=== PATIENT | female | born 1935 | race Caucasian/White ===

== ENCOUNTER 2017-03-15 20:27 | Inpatient (IN) | payer MEDICARE, OTHER ==
--- NOTE | 2017-03-15 20:57 | ER Document Report ---
ED General - General Stated Complaint: LEG SWELLING Time Seen by Provider: 03/15/17 20:51 Notes: 82 years old female with multiple medical problems including hypertension CHF diabetes, presents today with increased swelling over the entire left leg more than the right, with erythema and feverish feeling. And also weeping serosanguineous fluid a lot. Had some shortness of breath on minimal exertion. Denies any chest pain. Denies any other constitutional symptoms. TRAVEL OUTSIDE OF THE [place] 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 Denies: Hx Seizures GI Medical History: Reports: Hx Hepatitis - hep A?? 1952. Denies: Hx Hiatal Hernia, Hx Ulcer Musculoskeltal Medical History: Reports Hx Arthritis Psychiatric Medical History: Denies: Hx Depression Infectious Medical History: Reports: Hx Hepatitis - hep A?? 1952 Past Surgical History: Reports: Hx Cardiac Catheterization, Hx Cardiac Surgery - stent, Hx Hysterectomy, Hx Orthopedic Surgery - right and left hands, Hx Pacemaker, Hx Tonsillectomy. Denies: Hx Mastectomy, Hx Open Heart Surgery - Immunizations Hx Pneumococcal Vaccination: 04/01/10 Review of Systems - Review of Systems Notes: REVIEW OF SYSTEMS: CONSTITUTIONAL : General weakness, tiredness EENT: Denies eye, ear, throat, or mouth pain or symptoms. Denies nasal or sinus congestion or discharge. Denies throat, tongue, or mouth swelling or difficulty swallowing. CARDIOVASCULAR: Denies chest pain. Denies palpitations or racing or irregular heart beat. Denies ankle edema. RESPIRATORY: Shortness of breath on minimal exertion GASTROINTESTINAL: Denies abdominal pain or distention. Denies nausea, vomiting , or diarrhea. Denies blood in vomitus, stools, or per rectum. Denies black, tarry stools. Denies constipation. GENITOURINARY: Denies difficulty urinating, painful urination, burning, frequency, blood in urine, or discharge. FEMALE GENITOURINARY: Denies vaginal bleeding, heavy or abnormal periods, irregular periods. Denies vaginal discharge or odor. MUSCULOSKELETAL: Denies back or neck pain or stiffness. Denies joint pain or swelling. SKIN: Denies rash, lesions or sores. HEMATOLOGIC : Denies easy bruising or bleeding. LYMPHATIC: Denies swollen, enlarged glands. NEUROLOGICAL: Denies confusion or altered mental status. Denies passing out or loss of consciousness. Denies dizziness or lightheadedness. Denies headache. Denies weakness or paralysis or loss of use of either side. Denies problems with gait or speech. Denies sensory loss, numbness, or tingling. Denies seizures. PSYCHIATRIC: Denies anxiety or stress. Denies depression, suicidal ideation, or homicidal ideation. ALL OTHER SYSTEMS REVIEWED AND NEGATIVE. PHYSICAL EXAMINATION: GENERAL: Obese female, mills looking, seems to be in mild to moderate discomfort. HEAD: Atraumatic, normocephalic. EYES: Pupils equal round and reactive to light, extraocular movements intact, conjunctiva are normal. ENT: Nares patent, oropharynx clear without exudates. Moist mucous membranes. NECK: Normal range of motion, supple without lymphadenopathy LUNGS: Breath sounds clear to auscultation bilaterally and equal. No wheezes rales or rhonchi. HEART: Regular rate and rhythm without murmurs ABDOMEN: Soft, nontender, nondistended abdomen. No guarding, no rebound. No masses appreciated. Female : deferred Musculoskeletal: Both lower extremity shows swelling but the left one is double the size of the right, a large swelling noted all the way from the hip to the toes. Erythematous is warm to touch, seeping serosanguineous fluid. NEUROLOGICAL: Cranial nerves grossly intact. Normal speech, normal gait. Normal sensory, motor exams PSYCH: Normal mood, normal affect. SKIN: Warm, Dry, normal turgor, no rashes or lesions noted. Dictation was performed using [employer] voice recognition software Course - Re-evaluation Re-evalutation: 03/15/17 23:30 The case was discussed with Dr. Tirado and currently being admitted for cellulitis and sepsis - Laboratory Result Diagrams: 03/15/17 21:24 03/15/17 22:34 Laboratory results interpreted by me: 03/15/17 03/15/17 03/15/17 21:24 21:24 21:50 WBC 11.1 H RBC 5.35 H Hgb 16.5 H Hct 49.1 H RDW 15.8 H Plt Count 137 L Seg Neutrophils % 86.2 H Lymphocytes % 6.6 L Absolute Neutrophils 9.6 H PT Sodium Chloride BUN Creatinine Est GFR ( Amer) Est GFR (Non-Af Amer) Lactic Acid 2.8 H Total Bilirubin Direct Bilirubin NT-Pro-B Natriuret Pep Albumin Urine Protein 100 H Urine Urobilinogen 2.0 H 03/15/17 03/15/17 03/15/17 22:34 22:34 22:34 WBC RBC Hgb Hct RDW Plt Count Seg Neutrophils % Lymphocytes % Absolute Neutrophils PT 17.6 H Sodium 133.5 L Chloride 94 L BUN 55 H Creatinine 1.26 H Est GFR ( Amer) 49 L Est GFR (Non-Af Amer) 41 L Lactic Acid Total Bilirubin 3.1 H Direct Bilirubin 1.6 H NT-Pro-B Natriuret Pep 6970 H Albumin 3.3 L Urine Protein Urine Urobilinogen - Diagnostic Test Radiology results interpreted by me: 03/15/17 23:32 Chest x-ray reviewed, radiology report reviewed, no infiltration effusion or pneumothorax. - EKG Interpretation by Me Rate: Normal - Ventricular paced rhythm at the rate of 70 bpm left bundle branch block pattern. Discharge - Discharge Clinical Impression: Sepsis affecting skin, Hypoxia, Prerenal azotemia Cellulitis, leg Qualifiers: Laterality: left Qualified Code(s): L03.116 - Cellulitis of left lower limb Disposition: ADMITTED INPATIENT Admitting Provider: Tirado Unit Admitted: [facility]
--- NOTE | 2017-03-15 21:36 | RADIOLOGY REPORT (SQ) ---
EXAM DESCRIPTION: CHEST SINGLE VIEW COMPLETED DATE/TIME: 03/15/2017 9:19 pm REASON FOR STUDY: Shortness of breath COMPARISON: 07/09/2015 EXAM PARAMETERS: NUMBER OF VIEWS: One view. TECHNIQUE: Single frontal radiographic view of the chest acquired. RADIATION DOSE: NA LIMITATIONS: None. FINDINGS: LUNGS AND PLEURA: No acute opacities, masses or pneumothorax. No pleural effusion. MEDIASTINUM AND HILAR STRUCTURES: Stable. HEART AND VASCULAR STRUCTURES: Stable cardiomegaly. BONES: No acute findings. HARDWARE: Cardiac defibrillator. OTHER: No other significant finding. IMPRESSION: NO ACUTE RADIOGRAPHIC FINDING IN THE CHEST. TECHNICAL DOCUMENTATION: JOB ID: [id number] [place]-72 2010 [employer]- All Rights Reserved
[2017-03-15 21:48] LABS: ABSOLUTE LYMPHOCYTES (AUTO) 0.7 10^3/uL (0.5-4.7); ABSOLUTE MONOCYTES (AUTO) 0.8 10^3/uL (0.1-1.4); ABSOLUTE NEUT (AUTO) 9.6 10^3/uL (1.7-8.2); BASOPHILS % (AUTO) 0.2 % (0-2); EOSINOPHILS % (AUTO) 0.2 % (0-6); HEMATOCRIT 49.1 % (36.0-47.0); HEMOGLOBIN 16.5 g/dL (12.0-15.5); HGB HCT DIFFERENCE 0.4; LYMPHOCYTES % (AUTO) 6.6 % (13-45); MEAN CORPUSCULAR HEMOGLOBIN 30.8 pg (27.0-33.4); MEAN CORPUSCULAR HGB CONC 33.6 g/dL (32.0-36.0); MEAN CORPUSCULAR VOLUME 92 fl (80-97); MONOCYTES % (AUTO) 6.8 % (3-13); RED BLOOD COUNT 5.35 10^6/uL (3.72-5.28); RED CELL DISTRIBUTION WIDTH 15.8 % (11.5-14.0); SEGMENTED NEUTROPHILS % (AUTO) 86.2 % (42-78); WHITE BLOOD COUNT 11.1 10^3/uL (4.0-10.5)
[2017-03-15 21:49] LABS: VENOUS BLOOD HCO3 30.7 mmol/L (20-32); VENOUS BLOOD PCO2 52.7 mmHg (35-63); VENOUS BLOOD PH 7.38 (7.30-7.42)
[2017-03-15 22:33] LABS: APPEARANCE,URINE SLIGHTLY-CLOUDY; BILIRUBIN,URINE NEGATIVE (NEGATIVE); GLUCOSE, URINE NEGATIVE (NEGATIVE); KETONES,URINE NEGATIVE (NEGATIVE); LEUKOCYTE ESTERASE,URINE NEGATIVE (NEGATIVE); NITRITE,URINE NEGATIVE (NEGATIVE); PROTEIN,URINE 100 mg/dL (NEGATIVE); URINE SPECIFIC GRAVITY 1.023
[2017-03-15 23:01] LABS: PROTHROMBIN TIME 17.6 SEC (11.4-15.4)
[2017-03-15 23:10] LABS: ALANINE AMINOTRANSFERASE 24 U/L (9-52); ALBUMIN 3.3 g/dL (3.5-5.0); ALKALINE PHOSPHATASE 99 U/L (38-126); ANION GAP 11 (5-19); ASPARTATE AMINO TRANSFERASE 25 U/L (14-36); BILIRUBIN,DIRECT 1.6 mg/dL (0.0-0.4); BILIRUBIN,TOTAL 3.1 mg/dL (0.2-1.3); BLOOD UREA NITROGEN 55 mg/dL (7-20); CALCIUM 9.5 mg/dL (8.4-10.2); CARBON DIOXIDE 29 mmol/L (22-30); CHLORIDE 94 mmol/L (98-107); CREATININE RESULT 1.26 mg/dL (0.52-1.25); GLUCOSE 92 mg/dL (75-110); POTASSIUM 4.8 mmol/L (3.6-5.0); SODIUM 133.5 mmol/L (137-145)
[2017-03-15] MEDS ORDERED: VANCOMYCIN HCL INJ 1000 MG VIAL IV ONE (23:12)
[2017-03-15 23:20] LABS: CREATINE KINASE MB 1.59 ng/mL (<4.55)
[2017-03-15 23:30] LABS: TROPONIN I 0.06 ng/mL
[2017-03-15] MEDS ORDERED: IPRATROPIUM/ALBUTEROL 0.5-2.5 MG/3 ML AMPUL NEB PRN (23:31)
[2017-03-15] MEDS ORDERED: OXYCODONE-ACETAMINOPHEN 5-325 MG TABLET PO PRN (23:31)
[2017-03-15] MEDS ORDERED: APIXABAN 5 MG TABLET PO SCH (23:45)
[2017-03-15] MEDS ORDERED: LEVOFLOXACIN 750 MG/D5W RTU 750 MG/150 ML RTUPB IV SCH (23:45)
[2017-03-16] MEDS ORDERED: DEXTROSE 50%-WATER SYRINGE 25 GM/50 ML DOSE IV PRN (03:14)
[2017-03-16] MEDS ORDERED: DEXTROSE 40% GEL 15 GM TUBE X 2 PO PRN (03:14)
[2017-03-16] MEDS ORDERED: INSULIN LISPRO 100 UNIT/ML 3 ML VIAL SUBCUT PRN (03:14)
[2017-03-16] MEDS ORDERED: GLUCAGON,HUMAN RECOMB 1 MG INJ IM PRN (03:14)
[2017-03-16] MEDS ORDERED: DEXTROSE 40% GEL 15 GM TUBE PO PRN (03:14)
[2017-03-16] MEDS ORDERED: DEXTROSE 50%-WATER SYRINGE 12.5 GM/25 ML DOSE IV PRN (03:14)
[2017-03-16] MEDS: CLINDAMYCIN 600 MG/D5W RTU 600 MG/50 ML RTUPB IV SCH ×3 (05:16→22:03)
--- NOTE | 2017-03-16 05:41 | EKG REPORT ---
SEVERITY:- ABNORMAL ECG - VENTRICULAR-PACED RHYTHM : Confirmed by: Anastasiya Mac 16-Mar-2017 05:40:31
[2017-03-16 06:43] LABS: ABSOLUTE LYMPHOCYTES (AUTO) 0.7 10^3/uL (0.5-4.7); ABSOLUTE MONOCYTES (AUTO) 0.6 10^3/uL (0.1-1.4); ABSOLUTE NEUT (AUTO) 8.2 10^3/uL (1.7-8.2); BASOPHILS % (AUTO) 0.3 % (0-2); EOSINOPHILS % (AUTO) 0.3 % (0-6); HEMATOCRIT 43.1 % (36.0-47.0); HEMOGLOBIN 14.6 g/dL (12.0-15.5); HGB HCT DIFFERENCE 0.7; LYMPHOCYTES % (AUTO) 7.2 % (13-45); MEAN CORPUSCULAR HEMOGLOBIN 30.9 pg (27.0-33.4); MEAN CORPUSCULAR HGB CONC 33.9 g/dL (32.0-36.0); MEAN CORPUSCULAR VOLUME 91 fl (80-97); MONOCYTES % (AUTO) 6.2 % (3-13); RED BLOOD COUNT 4.73 10^6/uL (3.72-5.28); RED CELL DISTRIBUTION WIDTH 15.3 % (11.5-14.0); WHITE BLOOD COUNT 9.6 10^3/uL (4.0-10.5)
[2017-03-16 06:53] LABS: ANION GAP 8 (5-19); BLOOD UREA NITROGEN 55 mg/dL (7-20); CALCIUM 8.9 mg/dL (8.4-10.2); CARBON DIOXIDE 27 mmol/L (22-30); CHLORIDE 96 mmol/L (98-107); CREATINE KINASE 22 U/L (30-135); CREATININE RESULT 1.15 mg/dL (0.52-1.25); GLUCOSE 114 mg/dL (75-110); SODIUM 130.9 mmol/L (137-145)
[2017-03-16 07:16] LABS: CREATINE KINASE MB 1.05 ng/mL (<4.55); TROPONIN I 0.065 ng/mL
[2017-03-16] MEDS ORDERED: (PENDING PHARMACY ID) (Potassium Chloride [K-Tab Er] 20 MEQ) PO SCH (08:00)
[2017-03-16] MEDS: POTASSIUM CHLORIDE 10 MEQ TABLET.SA PO SCH (08:53)
[2017-03-16] MEDS ORDERED: PROPYLTHIOURACIL 50 MG TABLET PO ONE (09:00)
--- NOTE | 2017-03-16 09:17 | PDOC H&P ---
History of Present Illness Admission Date/PCP: 03/15/17 23:48 LISETTE PEDERSEN MD Patient complains of: Left lower extremity swelling and shortness of the breath History of Present Illness: MAXX BEE is a 82 year old female This is a 82-year-old female with a significant history of the congestive heart failure and a history of the chronic venous insufficiency and a history of the atrial fibrillations and pacemaker placement came to the emergency department with a complaint of left lower extremity swelling and redness and increasing the more pain since last 1 week Patient's denied any chest pain but complains of some mild shortness of the breath Patients also see a cardiology at [facility] and recently seen in March was all stable Patients also see a wound care clinic for chronic venous insufficiency In the emergency departments patient's white count is elevated and the definitely patient have a left lower extremity cellulitis with some mild CHF and decided to admit in the hospital The patient on the floor patients feeling better denied any chest pain denied any shortness of the breath Patient's pain is under control Past Medical History Cardiac Medical History: Reports: Atrial Fibrillation, Congestive Heart Failure , Coronary Artery Disease, Myocardial Infarction - 1998 two days after stroke, Hyperlipidema, Hypertension - medicated Pulmonary Medical History: Denies: Asthma Neurological Medical History: Denies: Seizures Renal/ Medical History: Reports: Chronic Kidney Disease GI Medical History: Reports: Gastroesophageal Reflux Disease, Hepatitis - hep A? ? 1952 Denies: Hiatal Hernia Musculoskeltal Medical History: Reports: Arthritis Psychiatric Medical History: Denies: Depression Hematology: Reports: Anemia - medicated Denies: Sickle Cell Disease Past Surgical History Past Surgical History: Reports: Cardiac Catheterization, Hysterectomy, Orthopedic Surgery - right and left hands, Pacemaker, Tonsillectomy Denies: Amputation, Mastectomy Social History Smoking Status: Never Smoker Frequency of Alcohol Use: None Hx Recreational Drug Use: No Drugs: None Hx Prescription Drug Abuse: No - Advance Directive Resuscitation Status: Full Code Family History Family History: Reviewed & Not Pertinent Parental Family History Reviewed: Yes Children Family History Reviewed: Yes Sibling(s) Family History Reviewed.: Yes Medication/Allergy Home Medications: Digoxin [Lanoxin 0.125 mg Tablet] 125 mcg PO DAILY 05/10/15 Ferrous Sulfate [Feosol 325 mg Tablet] 325 mg PO DAILY 05/10/15 Meclizine HCl 12.5 mg PO BID PRN 05/10/15 Propylthiouracil [Propylthiouracil 50 mg Tablet] 12.5 mg PO QAM 05/10/15 Simvastatin [Zocor 20 mg Tablet] 20 mg PO QHS 05/10/15 Apixaban [Eliquis 5 mg Tablet] 5 mg PO .BID 06/13/15 Ergocalciferol (Vitamin D2) [Drisdol 50,000 Unit (1.25MG) Capsule] 1 cap PO [id number] 03/16/17 Metolazone 2.5 mg PO TID 03/16/17 Metoprolol Tartrate 50 mg PO BID 03/16/17 Allergies/Adverse Reactions: Penicillins Allergy (Intermediate, Verified 05/10/15 12:54) Hives Review of Systems Constitutional: PRESENT: fever(s). ABSENT: chills, headache(s), weight gain, weight loss Eyes: ABSENT: visual disturbances Ears: ABSENT: hearing changes Cardiovascular: PRESENT: dyspnea on exertion. ABSENT: chest pain, edema, orthropnea, palpitations Respiratory: ABSENT: cough, hemoptysis Gastrointestinal: ABSENT: abdominal pain, constipation, diarrhea, hematemesis, hematochezia, nausea, vomiting Genitourinary: ABSENT: dysuria, hematuria Musculoskeletal: ABSENT: joint swelling Integumentary: ABSENT: rash, wounds Neurological: ABSENT: abnormal gait, abnormal speech, confusion, dizziness, focal weakness, syncope Psychiatric: ABSENT: anxiety, depression, homidical ideation, suicidal ideation Endocrine: ABSENT: cold intolerance, heat intolerance, menstrual abnormalities, polydipsia, polyuria Hematologic/Lymphatic: ABSENT: easy bleeding, easy bruising, lymphadenopathy Physical Exam Vital Signs: Temp Pulse Resp BP Pulse Ox 98.2 F 70 20 122/56 L 93 03/16/17 07:44 03/16/17 07:44 03/16/17 07:44 03/16/17 07:44 03/16/17 07:44 Intake & Output 03/15/17 03/16/17 03/17/17 06:59 06:59 06:59 Intake Total 170 Output Total 0 Balance 170 Weight 107 kg General appearance: PRESENT: no acute distress, well-developed, well-nourished Head exam: PRESENT: atraumatic, normocephalic Eye exam: PRESENT: conjunctiva pink, EOMI, PERRLA. ABSENT: scleral icterus Ear exam: PRESENT: normal external ear exam Mouth exam: PRESENT: moist, tongue midline Neck exam: PRESENT: full ROM. ABSENT: carotid bruit, JVD, lymphadenopathy, thyromegaly Respiratory exam: PRESENT: clear to auscultation reg Cardiovascular exam: PRESENT: RRR. ABSENT: diastolic murmur, rubs, systolic murmur Pulses: PRESENT: normal dorsalis pedis pul, +2 pedal pulses bilateral Vascular exam: PRESENT: normal capillary refill GI/Abdominal exam: PRESENT: normal bowel sounds, soft. ABSENT: distended, guarding, mass, organolmegaly, rebound, tenderness Rectal exam: PRESENT: deferred Extremities exam: PRESENT: pedal edema Additional comments: In the left lower extremities redness and warm to touch in the right lower extremities chronic venous insufficiency Neurological exam: PRESENT: alert, awake, oriented to person, oriented to place , oriented to time, oriented to situation, CN II-XII grossly intact. ABSENT: motor sensory deficit Psychiatric exam: PRESENT: appropriate affect, normal mood. ABSENT: homicidal ideation, suicidal ideation Skin exam: PRESENT: dry, intact, warm. ABSENT: cyanosis, rash Results Laboratory Results: 03/16/17 06:30 03/16/17 06:30 03/16/17 03/16/17 03/16/17 01:46 06:30 06:30 WBC 9.6 RBC 4.73 Hgb 14.6 Hct 43.1 MCV 91 MCH 30.9 MCHC 33.9 RDW 15.3 H Plt Count 94 L Seg Neutrophils % 86.0 H Lymphocytes % 7.2 L Monocytes % 6.2 Eosinophils % 0.3 Basophils % 0.3 Absolute Neutrophils 8.2 Absolute Lymphocytes 0.7 Absolute Monocytes 0.6 Absolute Eosinophils 0.0 Absolute Basophils 0.0 Sodium 130.9 L Potassium 5.0 Chloride 96 L Carbon Dioxide 27 Anion Gap 8 BUN 55 H Creatinine 1.15 Est GFR ( Amer) 55 L Est GFR (Non-Af Amer) 45 L Glucose 114 H Lactic Acid 1.8 Calcium 8.9 Magnesium 2.0 03/16/17 03/16/17 06:30 06:30 Creatine Kinase 22 L CK-MB (CK-2) 1.05 Troponin I 0.065 NT-Pro-B Natriuret Pep 6680 H Impressions: Chest X-Ray 03/15/17 20:51 IMPRESSION: NO ACUTE RADIOGRAPHIC FINDING IN THE CHEST. Assessment & Plan - Diagnosis (1) Cellulitis, leg Qualifiers: Laterality: left Qualified Code(s): L03.116 - Cellulitis of left lower limb Is this a current diagnosis for this admission?: Yes Plan: Start the patient on IV clindamycin's patient's already received the 1 dose of the vancomycin in the ER consult the general surgery (2) Chronic atrial fibrillation Is this a current diagnosis for this admission?: Yes Plan: Ruiz the Eliquis 5 mg p.o. twice a day (3) Congestive heart failure Qualifiers: Congestive heart failure type: combined Congestive heart failure chronicity : acute on chronic Qualified Code(s): I50.43 - Acute on chronic combined systolic (congestive) and diastolic (congestive) heart failure Is this a current diagnosis for this admission?: Yes Plan: Continues to Lasix and Zaroxolyn with a significant cardiac history we will consult the cardiology (5) Coronary artery disease Qualifiers: Coronary Disease-Associated Artery/Lesion type: unspecified vessel or lesion type Is this a current diagnosis for this admission?: Yes Plan: We will continues to cardiac enzyme to rule out acute coronary syndromes (6) History of permanent cardiac pacemaker placement Is this a current diagnosis for this admission?: Yes Plan: Currently stable (7) Hypertension Qualifiers: Hypertension type: essential hypertension Qualified Code(s): I10 - Essential (primary) hypertension Is this a current diagnosis for this admission?: Yes Plan: Continues to current medications (8) Obesity Is this a current diagnosis for this admission?: Yes (9) Renal failure (ARF), acute on chronic Qualifiers: Acute renal failure type: unspecified Chronic kidney disease stage: stage 2 (mild) Qualified Code(s): N17.9 - Acute kidney failure, unspecified; N18.2 - Chronic kidney disease, stage 2 (mild); N18.2 - Chronic kidney disease, stage 2 (mild) Is this a current diagnosis for this admission?: Yes Plan: Likely due to the sepsis and chronic congestive heart failure - Time Time Spent: 30 to 50 Minutes Medications reviewed and adjusted accordingly: Yes Anticipated discharge: Other Within: Other - Inpatient Certification Medical Necessity: Need Close Monitoring Due to Risk of Patient Decompensation, Need for IV Antibiotics 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
[2017-03-16] MEDS: METOPROLOL TARTRATE 50 MG TABLET PO SCH ×2 (09:48→21:58)
[2017-03-16] MEDS: DOCUSATE SODIUM 100 MG CAPSULE PO SCH ×2 (09:49→19:03)
[2017-03-16] MEDS: DIGOXIN 0.125 MG TABLET PO SCH (09:49)
[2017-03-16] MEDS: FUROSEMIDE 20 MG TABLET PO SCH ×2 (09:49→19:03)
[2017-03-16] MEDS ORDERED: DOCUSATE SODIUM 100 MG/10 ML UDC PO SCH (10:00)
[2017-03-16] MEDS ORDERED: FUROSEMIDE 80 MG TABLET PO SCH (10:00)
[2017-03-16] MEDS ORDERED: METOLAZONE 2.5 MG TABLET PO SCH (10:00)
[2017-03-16] MEDS: ACETAMINOPHEN 325 MG TABLET PO PRN (12:14)
--- NOTE | 2017-03-16 12:54 | CONSULTATION REPORT E ---
Consultation Report NAME: MAXX BEE : 1935 AGE: 82Y DATE: 03/16/2017 326 A TO: JUS JAMES M.D. FROM: ROBERT PEDERSEN M.D. Requesting Physician HISTORY OF PRESENT ILLNESS: The patient is an 82-year-old white female seen at the request of Dr. Robert Pedersen for lower extremity wounds. The patient reports she has had chronic wounds to the lower extremities, left worse than the right. She lives by herself and does her own dressing changes by her report. PAST MEDICAL AND SURGICAL HISTORY: Can be found in her history and physical document. PHYSICAL EXAMINATION: The patient is examined on the third floor. Extremities evaluated. Both feet are warm. Dressings removed completely. Left lower extremity has chronic venous hypertensive changes with areas of raw, weeping, opened areas posteriorly, small but multiple. The right lower extremity has some desquamation but no open wounds. Moderate edema. As stated, both feet are warm and no clinical evidence of ischemia. IMPRESSION: Cellulitis of the left lower extremity with venous hypertension, skin breakdown and *------* limited mobility. RECOMMENDATIONS: 1. No dressings required on right lower extremity; suggest Eucerin cream and 4 inch Adin wrap. 2. Regarding left lower extremity, after washing, apply Unna Boot and leave on for 1 week; cover with 4 x 4 and have patient follow up with [facility] in approximately 1 week. DICTATING PHYSICIAN: JUS JAMES M.D. [id number] PHY#: [id number] ID: [id number] JOB#: [id number] ACCT: [id number] cc:JUS JAMES M.D. >
[2017-03-16] MEDS ORDERED: LEVOFLOXACIN 750 MG/D5W RTU 750 MG/150 ML RTUPB IV SCH (18:00)
[2017-03-16] MEDS: APIXABAN 5 MG TABLET PO SCH (19:00)
[2017-03-16] MEDS ORDERED: NORMAL SALINE 250 ML IV PRN (20:19)
[2017-03-16] MEDS ORDERED: NORMAL SALINE 250 ML IV ONE (20:30)
[2017-03-16] MEDS: SIMVASTATIN 10 MG TABLET PO SCH (21:59)
[2017-03-17] MEDS: CLINDAMYCIN 600 MG/D5W RTU 600 MG/50 ML RTUPB IV SCH ×3 (05:06→22:23)
[2017-03-17 06:33] LABS: ABSOLUTE EOSINOPHILS # (AUTO) 0.1 10^3/uL (0.0-0.6); ABSOLUTE LYMPHOCYTES (AUTO) 0.7 10^3/uL (0.5-4.7); ABSOLUTE MONOCYTES (AUTO) 0.8 10^3/uL (0.1-1.4); ABSOLUTE NEUT (AUTO) 6.2 10^3/uL (1.7-8.2); BASOPHILS % (AUTO) 0.3 % (0-2); EOSINOPHILS % (AUTO) 1.5 % (0-6); HEMATOCRIT 45.1 % (36.0-47.0); HEMOGLOBIN 15.1 g/dL (12.0-15.5); HGB HCT DIFFERENCE 0.2; LYMPHOCYTES % (AUTO) 9.3 % (13-45); MEAN CORPUSCULAR HEMOGLOBIN 30.4 pg (27.0-33.4); MEAN CORPUSCULAR HGB CONC 33.6 g/dL (32.0-36.0); MEAN CORPUSCULAR VOLUME 91 fl (80-97); MONOCYTES % (AUTO) 9.9 % (3-13); RED BLOOD COUNT 4.98 10^6/uL (3.72-5.28); RED CELL DISTRIBUTION WIDTH 15.3 % (11.5-14.0); WHITE BLOOD COUNT 7.9 10^3/uL (4.0-10.5)
[2017-03-17 06:54] LABS: ANION GAP 12 (5-19); BLOOD UREA NITROGEN 59 mg/dL (7-20); CALCIUM 8.8 mg/dL (8.4-10.2); CARBON DIOXIDE 26 mmol/L (22-30); CHLORIDE 93 mmol/L (98-107); CREATININE RESULT 1.26 mg/dL (0.52-1.25); GLUCOSE 81 mg/dL (75-110); POTASSIUM 4.9 mmol/L (3.6-5.0)
[2017-03-17] MEDS: POTASSIUM CHLORIDE 10 MEQ TABLET.SA PO SCH (09:19)
[2017-03-17] MEDS: PROPYLTHIOURACIL 50 MG TABLET PO SCH (09:19)
[2017-03-17] MEDS: DOCUSATE SODIUM 100 MG CAPSULE PO SCH ×2 (09:19→18:50)
[2017-03-17] MEDS: APIXABAN 5 MG TABLET PO SCH (09:19)
--- NOTE | 2017-03-17 10:17 | PDOC PROGRESS REPORT ---
Subjective Progress Note for:: 03/17/17 Subjective:: Patient is currently doing fair Denied any chest pain denied any shortness of the breath No fever Patient blood pressure was running low last night and giving it to 250 cc of the bolus help the blood pressures Seen by cardiology and general surgery Patient also sees some spider I think is most likely related to the Levaquin side effect but other than that patient's denied any other symptoms patient is otherwise fully alert awake and oriented and patient answers all questions appropriately Reason For Visit: CELLULITIS/CHF Physical Exam Vital Signs: Temp Pulse Resp BP Pulse Ox 97.6 F 70 20 98/55 L 96 03/17/17 07:05 03/17/17 07:05 03/17/17 07:05 03/17/17 07:05 03/17/17 07:05 Intake & Output 03/16/17 03/17/17 03/18/17 06:59 06:59 06:59 Intake Total 170 1264 Output Total 0 200 Balance 170 1064 Weight 107 kg 110.9 kg General appearance: PRESENT: no acute distress, well-developed, well-nourished Head exam: PRESENT: atraumatic, normocephalic Eye exam: PRESENT: conjunctiva pink, EOMI, PERRLA. ABSENT: scleral icterus Ear exam: PRESENT: normal external ear exam Mouth exam: PRESENT: moist, tongue midline Neck exam: PRESENT: full ROM. ABSENT: carotid bruit, JVD, lymphadenopathy, thyromegaly Respiratory exam: PRESENT: clear to auscultation reg Cardiovascular exam: PRESENT: RRR. ABSENT: diastolic murmur, rubs, systolic murmur Pulses: PRESENT: normal dorsalis pedis pul, +2 pedal pulses bilateral Vascular exam: PRESENT: normal capillary refill GI/Abdominal exam: PRESENT: normal bowel sounds, soft. ABSENT: distended, guarding, mass, organolmegaly, rebound, tenderness Rectal exam: PRESENT: deferred Extremities exam: PRESENT: pedal edema Additional comments: Patient had a Unna boot is placed on the left lower extremity Neurological exam: PRESENT: alert, awake, oriented to person, oriented to place , oriented to time, oriented to situation, CN II-XII grossly intact. ABSENT: motor sensory deficit Psychiatric exam: PRESENT: appropriate affect, normal mood. ABSENT: homicidal ideation, suicidal ideation Skin exam: PRESENT: dry, intact, warm. ABSENT: cyanosis, rash Results Laboratory Results: 03/17/17 05:32 03/17/17 05:32 03/17/17 03/17/17 05:32 05:32 WBC 7.9 RBC 4.98 Hgb 15.1 Hct 45.1 MCV 91 MCH 30.4 MCHC 33.6 RDW 15.3 H Plt Count 105 L Seg Neutrophils % 79.0 H Lymphocytes % 9.3 L Monocytes % 9.9 Eosinophils % 1.5 Basophils % 0.3 Absolute Neutrophils 6.2 Absolute Lymphocytes 0.7 Absolute Monocytes 0.8 Absolute Eosinophils 0.1 Absolute Basophils 0.0 Sodium 131.0 L Potassium 4.9 Chloride 93 L Carbon Dioxide 26 Anion Gap 12 BUN 59 H Creatinine 1.26 H Est GFR ( Amer) 49 L Est GFR (Non-Af Amer) 41 L Glucose 81 Calcium 8.8 03/16/17 03/16/17 06:30 06:30 Creatine Kinase 22 L CK-MB (CK-2) 1.05 Troponin I 0.065 NT-Pro-B Natriuret Pep 6680 H Impressions: Chest X-Ray 03/15/17 20:51 IMPRESSION: NO ACUTE RADIOGRAPHIC FINDING IN THE CHEST. Assessment & Plan - Diagnosis (1) Cellulitis, leg Qualifiers: Laterality: left Qualified Code(s): L03.116 - Cellulitis of left lower limb Is this a current diagnosis for this admission?: Yes Plan: Start the patient on IV clindamycin's patient's already received the 1 dose of the vancomycin in the ER consult the general surgery (2) Chronic atrial fibrillation Is this a current diagnosis for this admission?: Yes Plan: Down the Eliquis 2.5 mg to the renal dose (3) Congestive heart failure Qualifiers: Congestive heart failure type: combined Congestive heart failure chronicity : acute on chronic Qualified Code(s): I50.43 - Acute on chronic combined systolic (congestive) and diastolic (congestive) heart failure Is this a current diagnosis for this admission?: Yes Plan: Continues to Lasix and Zaroxolyn with a significant cardiac history we will consult the cardiology (5) Coronary artery disease Qualifiers: Coronary Disease-Associated Artery/Lesion type: unspecified vessel or lesion type Is this a current diagnosis for this admission?: Yes Plan: We will continues to cardiac enzyme to rule out acute coronary syndromes (6) History of permanent cardiac pacemaker placement Is this a current diagnosis for this admission?: Yes Plan: Currently stable (7) Hypertension Qualifiers: Hypertension type: essential hypertension Qualified Code(s): I10 - Essential (primary) hypertension Is this a current diagnosis for this admission?: Yes Plan: Continues to current medications (8) Obesity Is this a current diagnosis for this admission?: Yes (9) Renal failure (ARF), acute on chronic Qualifiers: Acute renal failure type: unspecified Chronic kidney disease stage: stage 2 (mild) Qualified Code(s): N17.9 - Acute kidney failure, unspecified; N18.2 - Chronic kidney disease, stage 2 (mild); N18.2 - Chronic kidney disease, stage 2 (mild) Is this a current diagnosis for this admission?: Yes Plan: Continues to monitor the patient - Time Time Spent with patient: 15-24 minutes Medications reviewed and adjusted accordingly: Yes Anticipated discharge: Home Within: Other - Inpatient Certification Medical Necessity: Need Close Monitoring Due to Risk of Patient Decompensation 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
[2017-03-17] MEDS ORDERED: METOPROLOL TARTRATE 25 MG TABLET PO ONE (11:30)
[2017-03-17] MEDS ORDERED: CIPROFLOXACIN HCL 500 MG TABLET PO ONE (11:30)
[2017-03-17] MEDS ORDERED: METOPROLOL TARTRATE 50 MG TABLET PO ONE (11:30)
[2017-03-17] MEDS: DIGOXIN 0.125 MG TABLET PO SCH (11:31)
[2017-03-17] MEDS: FUROSEMIDE 20 MG TABLET PO SCH ×2 (11:33→18:51)
--- NOTE | 2017-03-17 11:58 | RADIOLOGY REPORT (SQ) ---
EXAM DESCRIPTION: CT HEAD WITHOUT COMPLETED DATE/TIME: 03/17/2017 10:33 am REASON FOR STUDY: confusion COMPARISON: None. TECHNIQUE: Axial images acquired through the brain without intravenous contrast. Images reviewed wi th bone, brain and subdural windows. Images stored on PACS. All CT scanners at this facility use dose modulation, iterative reconstruction, and/or weight based d osing when appropriate to reduce radiation dose to as low as reasonably achievable (ALARA). [facility]: Dose Right [facility]: CareDose [facility]: Dose Right [facility]: Teradose 4D [facility]: [employer] RADIATION DOSE: CT Rad equipment meets quality standard of care and radiation dose reduction techniq ues were employed. CTDIvol: 28.0 mGy. DLP: 560 mGy-cm. mGy. LIMITATIONS: None. FINDINGS: VENTRICLES: Normal size and contour. CEREBRUM: No CT evidence of acute large territory ischemic change, acute intracranial hemorrhage, mas s effect, or midline shift. Moderate bifrontal chronic small vessel ischemic change, with an old infa rct in the right basal ganglia. CEREBELLUM: No masses. No hemorrhage. No alteration of density. No evidence for acute infarction. EXTRAAXIAL SPACES: No fluid collections. No masses. ORBITS AND GLOBE: No intra- or extraconal masses. Post bilateral cataract surgery. CALVARIUM: No fracture. PARANASAL SINUSES: Air-fluid levels in the right and left maxillary sinuses worrisome for sinusitis. SOFT TISSUES: No mass or hematoma. OTHER: No other significant finding. 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 No CT evidence of acute large territory ischemic change, acute intracranial hemorrhage, mass effect, or midline shift. Air-fluid levels bilateral maxillary sinuses from sinusitis EVIDENCE OF ACUTE STROKE: NO. COMMENT: Quality ID # [id number]: Final reports with documentation of one or more dose reduction techniques (e.g., Automated exposure control, adjustment of the mA and/or kV according to patient size, use of iterative reconstruction technique) TECHNICAL DOCUMENTATION: JOB ID: [id number] [employer]- All Rights Reserved
--- NOTE | 2017-03-17 12:23 | RADIOLOGY REPORT (SQ) ---
EXAM DESCRIPTION: CHEST SINGLE VIEW COMPLETED DATE/TIME: 03/17/2017 12:12 pm REASON FOR STUDY: chf COMPARISON: CT chest 07/02/2015 Two-view chest 07/09/2015, 03/15/2017 EXAM PARAMETERS: NUMBER OF VIEWS: One view. TECHNIQUE: Single frontal radiographic view of the chest acquired. RADIATION DOSE: NA LIMITATIONS: None. FINDINGS: LUNGS AND PLEURA: Chronic elevation left hemidiaphragm unchanged. There is now consolidation of the left lower lobe in the retrocardiac region, atelectasis versus pneu monia. Right lung clear. No pleural effusions. No pneumothorax. MEDIASTINUM AND HILAR STRUCTURES: No masses. Contour normal. HEART AND VASCULAR STRUCTURES: Stable moderate cardiomegaly BONES: No acute findings. HARDWARE: Unchanged left-sided pacemaker OTHER: No other significant finding. IMPRESSION: Left retrocardiac consolidation atelectasis versus pneumonia. Chronic elevated left hemidiaphragm. Stable cardiomegaly, unchanged left-sided pacemaker TECHNICAL DOCUMENTATION: JOB ID: [id number] [employer] All Rights Reserved
--- NOTE | 2017-03-17 16:03 | PROGRESS NOTE E ---
Progress Note NAME: MAXX BEE : 1935 AGE: 82Y DATE: 03/17/2017 ROOM: 326 SUBJECTIVE: The patient denies any chest pain or discomfort. She feels feverish, but her temperature is normal. She denies any shortness of breath at rest. There is no PND. Her cellulitis and leg pain is better in the left lower extremity. Note that the blood pressure was low, and she got a bolus. The blood pressure is still on the lower side, but the patient is asymptomatic. There are no TIA or CVA symptoms. There are no anginal symptoms. There is chronic bilateral leg edema with redness of the left lower extremity consistent with cellulitis. OBJECTIVE: GENERAL: On examination, the patient continues to have chronic orthopnea. The patient is morbidly obese in spite of losing weight. VITAL SIGNS: She is afebrile with a temperature of 97.6 degrees Fahrenheit. Pulse is 70 beats per minute. Blood pressure 98/55. Respirations are 20 per minute. O2 saturations are 96% on 3 liters nasal cannula. HEAD: Atraumatic/normocephalic. EYES: Pupils are equal, round, regular, reactive to light and accommodation. Extraocular movements are normal. There is no conjunctival pallor. There is no scleral icterus. EARS, NOSE, AND THROAT: Negative. NECK: Supple. There is no JVD. Carotids are equal. There is no bruit. There is no lymphadenopathy. There is no goiter. There is no JVD. Her trachea is central. LUNGS: Clear to auscultation and percussion. There is no chest-wall tenderness. HEART: S1, S2 is heard. S1 is of variable intensity. There is no S3 gallop. There is no S4 gallop. There is a systolic murmur in the left sternal border and the apex. There is no rub. ABDOMEN: The abdomen is obese, soft, nontender. There is no hepatosplenomegaly. Bowel sounds are well heard. There are no tender areas or masses. EXTREMITIES: Femorals are deep. Femorals are diminished. There is no femoral bruit. Leg pulses are difficult to palpate. There is 2+ chronic bilateral leg edema with cellulitis of the left lower extremity which seems to be slightly improved. There is no cyanosis or clubbing. CENTRAL NERVOUS SYSTEM: The patient is conscious, awake, alert, oriented x3 with no focal deficits. PSYCHIATRIC: The patient's judgement and insight are intact. Her affect is normal. INTAKE AND OUTPUT: The patient's 24-hour intake is 1260 mL, output is 200 mL. DIAGNOSTIC DATA: The patient's white count is 7,900, hemoglobin is 15.1, hematocrit is 45.1, and the platelet count is 105,000. The patient's sodium is 131, potassium 4.9, chloride 93, CO2 is 26, the patient's BUN is 59, creatinine is 1.26, GFR is reduced at 41 mL which is chronic kidney disease stage 3. The patient's glucose is *------*, calcium is 8.8. Her TSH is 3.87. IMPRESSION: 1. LEFT LOWER EXTREMITY CELLULITIS, PATIENT ON ANTIBIOTICS. 2. CHRONIC BILATERAL LOWER EXTREMITY SWELLING. 3. CHRONIC ATRIAL FIBRILLATION. 4. HISTORY OF PERMANENT PACEMAKER, RECENTLY UPGRADED TO AN AICD; NO FIRING OF THE AICD. 5. CONGESTIVE HEART FAILURE, AT PRESENT SEEMS TO BE COMPENSATED. 6. CORONARY ARTERY DISEASE, NO ANGINAL SYMPTOMS, HISTORY OF [place]. 7. CARDIOMYOPATHY, ? EF, MOST LIKELY IS SEVERELY REDUCED SINCE THE PATIENT HAS AN AICD. WILL CONTINUE LASIX AND ZAROXOLYN. WOULD NOT GIVE THE PATIENT ANY BOLUS. 8. HISTORY OF HYPERTENSION. NOW BLOOD PRESSURES ARE LOW. WILL CONTINUE TO WATCH THE PATIENT, AND IF IT CONTINUES TO BE LOW, WOULD RECOMMEND STARTING THE PATIENT ON MIDODRINE. 9. OBESITY. 10. RENAL FAILURE, CHRONIC KIDNEY DISEASE STAGE 3. 11. HISTORY OF CVA WITH NO RECURRENCE AND NO RESIDUAL. 12. HYPERTHYROIDISM. THE PATIENT IS ON THIOURACIL. RECOMMENDATIONS: Continue Lasix and Zaroxolyn. Continue the patient on Eliquis for atrial fibrillation. Continue the patient on Digoxin, will check a Digoxin level tomorrow. Continue metoprolol at 12.5 mg p.o. q.12 h. Continue thiouracil. Note, more than 30 minutes were spent on this patient with more than 50% of the time spent on direct patient care and also discussed the case with Dr. Tirado, the attending physician on the case. Medical decision making continues to be of high complexity. Will follow with you. DICTATING PHYSICIAN: WILBUR PEREIRA M.D. [id number] PHY#: [id number] ID: [id number] JOB#: [id number] ACCT: [id number] cc:WILBUR PEREIRA M.D. >
[2017-03-17] MEDS: APIXABAN 2.5 MG TABLET PO SCH (18:51)
[2017-03-17] MEDS: SIMVASTATIN 10 MG TABLET PO SCH (22:23)
[2017-03-17] MEDS: CIPROFLOXACIN HCL 500 MG TABLET PO SCH (22:23)
[2017-03-17] MEDS: METOPROLOL TARTRATE 25 MG TABLET PO SCH (22:24)
[2017-03-18] MEDS: CLINDAMYCIN 600 MG/D5W RTU 600 MG/50 ML RTUPB IV SCH ×3 (05:25→22:19)
[2017-03-18 07:27] LABS: ABSOLUTE EOSINOPHILS # (AUTO) 0.1 10^3/uL (0.0-0.6); ABSOLUTE LYMPHOCYTES (AUTO) 0.7 10^3/uL (0.5-4.7); ABSOLUTE MONOCYTES (AUTO) 0.9 10^3/uL (0.1-1.4); ABSOLUTE NEUT (AUTO) 4.8 10^3/uL (1.7-8.2); BASOPHILS % (AUTO) 0.5 % (0-2); EOSINOPHILS % (AUTO) 1.8 % (0-6); HEMOGLOBIN 15.4 g/dL (12.0-15.5); HGB HCT DIFFERENCE 1.2; LYMPHOCYTES % (AUTO) 11.4 % (13-45); MEAN CORPUSCULAR HEMOGLOBIN 30.9 pg (27.0-33.4); MEAN CORPUSCULAR HGB CONC 34.3 g/dL (32.0-36.0); MEAN CORPUSCULAR VOLUME 90 fl (80-97); RED BLOOD COUNT 4.99 10^6/uL (3.72-5.28); RED CELL DISTRIBUTION WIDTH 15.3 % (11.5-14.0); SEGMENTED NEUTROPHILS % (AUTO) 73.3 % (42-78); WHITE BLOOD COUNT 6.6 10^3/uL (4.0-10.5)
[2017-03-18 07:49] LABS: ANION GAP 9 (5-19); BLOOD UREA NITROGEN 56 mg/dL (7-20); CALCIUM 8.9 mg/dL (8.4-10.2); CARBON DIOXIDE 30 mmol/L (22-30); CHLORIDE 93 mmol/L (98-107); CREATININE RESULT 1.22 mg/dL (0.52-1.25); GLUCOSE 79 mg/dL (75-110); POTASSIUM 4.6 mmol/L (3.6-5.0); SODIUM 132.3 mmol/L (137-145)
[2017-03-18] MEDS: POTASSIUM CHLORIDE 10 MEQ TABLET.SA PO SCH (08:12)
[2017-03-18] MEDS: PROPYLTHIOURACIL 50 MG TABLET PO SCH (08:12)
[2017-03-18] MEDS: DOCUSATE SODIUM 100 MG CAPSULE PO SCH ×2 (09:32→18:33)
[2017-03-18] MEDS: CIPROFLOXACIN HCL 500 MG TABLET PO SCH ×2 (09:32→22:14)
[2017-03-18] MEDS: DIGOXIN 0.125 MG TABLET PO SCH (09:32)
[2017-03-18] MEDS: APIXABAN 2.5 MG TABLET PO SCH ×2 (09:33→18:33)
[2017-03-18] MEDS: METOPROLOL TARTRATE 25 MG TABLET PO SCH ×2 (09:33→22:15)
[2017-03-18] MEDS: FUROSEMIDE 20 MG TABLET PO SCH ×2 (09:36→18:37)
--- NOTE | 2017-03-18 12:14 | PDOC PROGRESS REPORT ---
Subjective Progress Note for:: 03/18/17 Subjective:: Patient is currently doing well Patient's denied any chest pain denied any shortness of the breath Patient CT head was negative for any acute finding After stopping the Levaquin patient did not see any spider anymore Patient otherwise discussed with the Dr. Pagan agree about to cut down the beta-marisol Reason For Visit: CELLULITIS/CHF Physical Exam Vital Signs: Temp Pulse Resp BP Pulse Ox 97.4 F 70 20 102/50 L 94 03/18/17 08:22 03/18/17 10:02 03/18/17 10:02 03/18/17 08:22 03/18/17 10:02 Intake & Output 03/17/17 03/18/17 03/19/17 06:59 06:59 06:59 Intake Total 1264 710 Output Total 200 Balance 1064 710 Weight 110.9 kg 109 kg General appearance: PRESENT: no acute distress, well-developed, well-nourished Head exam: PRESENT: atraumatic, normocephalic Eye exam: PRESENT: conjunctiva pink, EOMI, PERRLA. ABSENT: scleral icterus Ear exam: PRESENT: normal external ear exam Mouth exam: PRESENT: moist, tongue midline Neck exam: PRESENT: full ROM. ABSENT: carotid bruit, JVD, lymphadenopathy, thyromegaly Respiratory exam: PRESENT: clear to auscultation reg Cardiovascular exam: PRESENT: RRR. ABSENT: diastolic murmur, rubs, systolic murmur Pulses: PRESENT: normal dorsalis pedis pul, +2 pedal pulses bilateral Vascular exam: PRESENT: normal capillary refill GI/Abdominal exam: PRESENT: normal bowel sounds, soft. ABSENT: distended, guarding, mass, organolmegaly, rebound, tenderness Rectal exam: PRESENT: deferred Extremities exam: PRESENT: pedal edema Additional comments: Dressing is intact in the both legs Neurological exam: PRESENT: alert, awake, oriented to person, oriented to place , oriented to time, oriented to situation, CN II-XII grossly intact. ABSENT: motor sensory deficit Psychiatric exam: PRESENT: appropriate affect, normal mood. ABSENT: homicidal ideation, suicidal ideation Skin exam: PRESENT: dry, intact, warm. ABSENT: cyanosis, rash Results Laboratory Results: 03/18/17 07:10 03/18/17 07:10 1203/18/17 03/18/17 05:32 07:10 07:10 WBC 6.6 RBC 4.99 Hgb 15.4 Hct 45.0 MCV 90 MCH 30.9 MCHC 34.3 RDW 15.3 H Plt Count 145 L Seg Neutrophils % 73.3 Lymphocytes % 11.4 L Monocytes % 13.0 Eosinophils % 1.8 Basophils % 0.5 Absolute Neutrophils 4.8 Absolute Lymphocytes 0.7 Absolute Monocytes 0.9 Absolute Eosinophils 0.1 Absolute Basophils 0.0 Sodium 132.3 L Potassium 4.6 Chloride 93 L Carbon Dioxide 30 Anion Gap 9 BUN 56 H Creatinine 1.22 Est GFR ( Amer) 51 L Est GFR (Non-Af Amer) 42 L Glucose 79 Calcium 8.9 TSH 3.87 03/16/17 03/16/17 06:30 06:30 Creatine Kinase 22 L CK-MB (CK-2) 1.05 Troponin I 0.065 NT-Pro-B Natriuret Pep 6680 H Impressions: Chest X-Ray 03/17/17 00:00 IMPRESSION: Left retrocardiac consolidation atelectasis versus pneumonia. Chronic elevated left hemidiaphragm. 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 No CT evidence of acute large territory ischemic change, acute intracranial hemorrhage, mass effect, or midline shift. Air-fluid levels bilateral maxillary sinuses from sinusitis EVIDENCE OF ACUTE STROKE: NO. Assessment & Plan - Diagnosis (1) Cellulitis, leg Qualifiers: Laterality: left Qualified Code(s): L03.116 - Cellulitis of left lower limb Is this a current diagnosis for this admission?: Yes Plan: Start the patient on IV clindamycin's patient's already received the 1 dose of the vancomycin in the ER consult the general surgery (2) Chronic atrial fibrillation Is this a current diagnosis for this admission?: Yes Plan: Down the Eliquis 2.5 mg to the renal dose (3) Congestive heart failure Qualifiers: Congestive heart failure type: combined Congestive heart failure chronicity : acute on chronic Qualified Code(s): I50.43 - Acute on chronic combined systolic (congestive) and diastolic (congestive) heart failure Is this a current diagnosis for this admission?: Yes Plan: Continues to Lasix and Zaroxolyn with a significant cardiac history we will consult the cardiology (4) Chronic venous insufficiency Plan: Follow with the vascular surgery as outpatient (5) Coronary artery disease Qualifiers: Coronary Disease-Associated Artery/Lesion type: unspecified vessel or lesion type Is this a current diagnosis for this admission?: Yes Plan: We will continues to cardiac enzyme to rule out acute coronary syndromes (6) History of permanent cardiac pacemaker placement Is this a current diagnosis for this admission?: Yes Plan: Currently stable (7) Hypertension Qualifiers: Hypertension type: essential hypertension Qualified Code(s): I10 - Essential (primary) hypertension Is this a current diagnosis for this admission?: Yes Plan: Currently all stable (8) Obesity Is this a current diagnosis for this admission?: Yes (9) Renal failure (ARF), acute on chronic Qualifiers: Acute renal failure type: unspecified Chronic kidney disease stage: stage 2 (mild) Qualified Code(s): N17.9 - Acute kidney failure, unspecified; N18.2 - Chronic kidney disease, stage 2 (mild); N18.2 - Chronic kidney disease, stage 2 (mild) Is this a current diagnosis for this admission?: Yes Plan: Continues to monitor the patient - Time Time Spent with patient: 15-24 minutes Medications reviewed and adjusted accordingly: Yes Anticipated discharge: Home Within: Other - Inpatient Certification Medical Necessity: Need Close Monitoring Due to Risk of Patient Decompensation, Need for IV Antibiotics Post Hospital Care: D/C Piano Technician Documentation - Plan Summary Plan Summary: We will get the physical therapy consult we know from the oxygens and ambulated the patient's
--- NOTE | 2017-03-18 12:52 | CONSULTATION REPORT E ---
Consultation Report NAME: MAXX BEE : 1935 AGE: 82Y DATE: 03/16/2017 ROOM: 326 A TO: WILBUR PEREIRA M.D. FROM: LISETTE PEDERSEN M.D. Requesting Physician REASON FOR CONSULTATION: Patient with cardiomyopathy, AICD, chronic atrial fibrillation, congestive heart failure, and left lower extremity cellulitis. HISTORY OF PRESENT ILLNESS: The patient is an 82-year-old female with a history of congestive heart failure, acute on chronic, history of cardiomyopathy, history of chronic venous insufficiency, a history of chronic atrial fibrillation, and a history of permanent pacemaker placement which has been upgraded to an AICD in the recent past. The patient states since about a week or so she has been having increasing swelling of the left lower extremity with redness and pain. The patient denies any fever, chills, or rigors. She denies any chest pain or discomfort. There is no firing of the AICD. She has chronic orthopnea but no PND. She has chronic venous stasis dermatitis of the lower extremities due to chronic leg swelling. She has a history of coronary artery disease. She states that 2 years after a stroke she had a myocardial infarction. She has fully recovered from the stroke. At present the patient states that after the patient was treated in the ER with antibiotics and given Lasix, she feels better. PAST MEDICAL HISTORY: Positive for: 1. History of hypertension. 2. Hyperlipidemia. 3. History of coronary artery disease. History of NM 2 days after the patient had her stroke in 1998, fully recovered from the stroke. 4. History of chronic atrial fibrillation and history of bradycardia and pauses and had initially a permanent pacemaker placement. Subsequently, due to LV dysfunction, this was upgraded to an AICD. There is no firing of the AICD. 5. She has no history of diabetes mellitus. 6. The patient at present in renal failure. In 07/2015 her renal functions were normal, so I am not sure if this is acute on chronic or acute renal failure, although the history mentions that the patient has chronic kidney disease. 7. History of GERD. 8. History of hepatitis in 1953, most likely hepatitis A. 9. History of arthritis. 10. There is no history of depression. 11. History of anemia. 12. There is no history of thyroid disease. 13. She has no history of asthma or COPD. 14. There is no history of sleep apnea. 15. The patient was morbidly obese but has lost a lot of weight, but still seems to be moderately obese. 16. There is no recurrence of TIA or CVA. PAST SURGICAL HISTORY: 1. . 2. Left hand surgery. 3. History of permanent pacemaker placement, subsequently upgraded to an AICD. No firing of the AICD. 4. Tonsillectomy. SOCIAL HISTORY: The patient has never smoked. ADVANCED DIRECTIVES: THE PATIENT IS A FULL CODE. Her son is her surrogate healthcare decision maker. ALLERGIES: THE PATIENT IS ALLERGIC TO PENICILLIN. MEDICATIONS: Include: 1. Tylenol 650 mg p.o. q. 4 hours p.r.n. 2. Eliquis 5 mg p.o. b.i.d. 3. She is on hypoglycemic precautions with glucose gel 15 grams p.o. and 30 grams p.o. 4. Dextrose 50%, 12.5 grams IV and 25 grams IV p.r.n. hypoglycemia. 5. Digoxin 0.125 mg p.o. daily. 6. Colace 100 mg p.o. b.i.d. 7. Lasix 60 mg p.o. b.i.d. 8. She is on hypoglycemic precautions with glucagon 1 mg IM p.r.n. 9. She is on Accu-Chek's a.c. t.i.d. and at bedtime with sliding-scale insulin coverage. 10. Ipratropium/albuterol sulfate nebulizer treatment q. 6 hours p.r.n. 11. Clindamycin 600 mg IV piggyback q. 8 hours. 12. Levaquin 750 mg IV piggy back q.p.m. 13. Metoprolol tartrate (Lopressor) 50 mg p.o. q. 12 hours. 14. Normal saline; she had 2 boluses of 250 mL, total 500. 15. KCl 20 mEq p.o. q.a.m. 16. Propylthiouracil 12.5 mg p.o. x1 and propylthiouracil 12.5 mg p.o. q.a.m. 17. Simvastatin 20 mg p.o. at bedtime. REVIEW OF SYSTEMS: CONSTITUTIONAL: Denies any fevers but has chills and rigors, and also has generalized fatigue and weakness. HEAD: Denies headache or head injury. EYES: No history of amblyopia or diplopia. No history of amaurosis fugax. EARS: No history of hearing loss. No tinnitus. No history of recurrent ear infections. NOSE: No history of hayfever. No history of nosebleeds. No history of nasal polyps. No history of deviated nasal septum. MOUTH: No history of altered taste sensation. No ulcers in the mouth. No bleeding from gums. THROAT: No odynophagia or dysphagia. No history of recurrent sore throats. SKIN: There are no skin rashes. No history of petechiae or ecchymosis. No skin lesions. There is chronic venous stasis dermatitis in the lower extremities with redness, consistent with cellulitis of the left lower extremity. NECK: Denies any neck pain. No goiter. No swelling in the neck. LUNGS: No history of cough or sputum production. No history of wheezing. She has chronic orthopnea. There is no pulmonary embolism. There is no hemoptysis. There is no pleuritic chest pain. There are no symptoms of upper respiratory tract infection or lower respiratory tract infection. No history of sleep apnea. CARDIAC: History of hypertension. History of atrial fibrillation, chronic. History of cardiomyopathy with recently severe LV dysfunction requiring that her permanent pacemaker be upgraded to an AICD. She had an NM after a stroke in 1998. She has a stent placement. History of chronic venous insufficiency and cardiomyopathy causing chronic swelling of the legs. There is no history of syncope. No firing of her AICD. She has chronic orthopnea but no PND. No anginal symptoms. MUSCULOSKELETAL: History of arthritis but no history of collagen vascular disease. RENAL: It is not clear whether the patient has acute on chronic renal failure or acute renal failure. In 07/2015 her GFR was greater than 60. At present the patient is stage 3 chronic kidney disease. No history of hematuria, pyuria, or dysuria. There are no symptoms of UTI. ENDOCRINE: No history of diabetes mellitus. She has hyperthyroidism, on propylthiouracil. No symptoms of heat or cold intolerance. No history of palpitations. No history of polydipsia or polyuria. GASTROINTESTINAL: History of GERD present. No history of GI bleed. No history of fatty food intolerance. No history of cirrhosis. History of hepatitis A in 1953. No history of GI bleed. No history of altered bowel movements. CENTRAL NERVOUS SYSTEM: Past history of CVA in 1998, fully recovered, no recurrence. No history of headaches, migraines, or seizures. No history of sleep apnea. No history of gait imbalance. PSYCHIATRIC: No history of anxiety or depression. No history of suicidal ideation. No history of homicidal ideation. VASCULAR: No history of calf or buttock claudication. No history of DVT. HEMATOLOGIC: History of anemia present. No history of bleeding diathesis. No history of clotting disorders. Rest of the review of symptoms: The patient has chronic atrial fibrillation and is on Eliquis 5 mg p.o. b.i.d. PHYSICAL EXAMINATION: GENERAL: The patient is morbidly obese, at present in no acute distress. She is well groomed. VITAL SIGNS: She is afebrile with a temperature of 97.7 degrees Fahrenheit. Pulse is 70 beats per minute. Blood pressure is 107/58. Respirations 20 per minute. O2 sats are 96% on 3 liters nasal cannula. HEAD: Atraumatic, normocephalic. EYES: Pupils are equal, round, and regular, reactive to light and accommodation. Extraocular movements are normal. There is no conjunctival pallor. There is no scleral icterus. EARS: Tympanic membranes are intact. External auditory canals are clear. NOSE: There is no deviated nasal septum. There is no inflammation of the nasal mucous membrane. MOUTH: Mucous membranes of the mouth are moist. Tongue is moist. There are no ulcers. There is no bleeding from the gums. THROAT: There is no redness of the oropharynx. There are no exudates. SKIN: There are no skin rashes. There is no petechiae or ecchymosis. There are no skin lesions. The patient has chronic venous stasis dermatitis with cellulitis and redness of the left lower extremity with increased warmth. NECK: Supple. There is JVD present. Carotids are equal. There is no bruit. There is no lymphadenopathy. There is no goiter. Trachea is central. LUNGS: Show a few bibasilar rales of CHF. HEART: S1 and S2 are heard. There is no S3 gallop. There is no S4 gallop. S1 is of variable intensity. There is a systolic murmur in the left sternal border and the apex. There is no rub. ABDOMEN: Obese, nontender. There is no hepatosplenomegaly. Bowel sounds are well heard. There are no tender areas or masses. There is no rebound, guarding, or rigidity. EXTREMITIES: Femorals are diminished. There are no femoral bruits. Leg pulses are difficult to palpate. There is 2+ chronic edema with venous stasis dermatitis. There is cellulitis and redness and increased warmth of the left lower extremity. There is no cyanosis or clubbing. There is no calf tenderness. CENTRAL NERVOUS SYSTEM: The patient is conscious, awake, alert, oriented x3, with no focal deficits. PSYCHIATRIC: The patient's judgement and insight are intact. Her affect is normal. DIAGNOSTIC STUDIES: Chest x-ray shows cardiomegaly. No x-ray evidence for congestive heart failure, but clinically the patient does have congestive heart failure. EKG shows atrial fibrillation with ventricular-paced rhythm. The patient's white count is 9600, hemoglobin is 14.6, hematocrit is 43. The patient's platelet count is 94,000. The patient's sodium is 130.9, potassium 5.0, chloride is 96, CO2 is 27. The patient's BUN is 55, creatinine is 1.15, GFR is reduced to 45 mL, which is stage 3 chronic kidney disease, most likely, if the patient did have chronic renal insufficiency or acute renal failure. The patient's glucose is 114. Calcium was 8.9. Her magnesium is 2.0. Her CPK is 22, CPK-MB is negative. A troponin-I today was 0.065. Her NT-ProBNP was 6680. The patient's earlier troponin-I on the was 0.060 with a negative CPK-MB. The patient's protime is 17.6, INR is 1.36. IMPRESSION: 1. Cellulitis of the left lower extremity / left leg. Continue antibiotics. Patient seen by surgeon. Surgical consult appreciated . 2. Chronic atrial fibrillation. Continue Eliquis. 3. Congestive heart failure. Continue Lasix, but would recommend IV metolazone. 4. Cardiomyopathy, question of LV ejection fraction. 5. Coronary artery disease, history of NM. No recent anginal symptoms. 6. Cardiomyopathy with AICD placement. Prior to that the patient had a permanent pacemaker placement. 7. Hypertension, well controlled. 8. Obesity, morbid. 9. Acute renal failure with acute on chronic renal failure, most likely secondary to sepsis and congestive heart failure. 10. Hyperthyroidism. 11. History of CVA. RECOMMENDATION: Continue current medications. I would add metolazone. If the patient's urine output is not adequate, then we will change it to intravenous Lasix. Continue antibiotics. Will try to get the patient's last echocardiogram done at [facility] office in [place]. Note, the patient was seen at 1:00 p.m. Note, 45 minutes spent on this patient, more than 50% of time spent on direct patient care. The patient's medications have been reviewed, and suggestions made for changes in the medication discussed with the attending physician. The patient's medical decision making is of high complexity. DICTATING PHYSICIAN: WILBUR PEREIRA M.D. [id number] PHY#: [id number] ID: [id number] JOB#: [id number] ACCT: [id number] cc:WILBUR PEREIRA M.D. >
--- NOTE | 2017-03-18 18:53 | PROGRESS NOTE E ---
Progress Note NAME: MAXX BEE : 1935 AGE: 82Y DATE: 03/18/2017 ROOM: 326 SUBJECTIVE: Note that the patient denies any shortness of breath, chest pain, or discomfort. She continues to be in atrial fibrillation. There is no bleeding on current oral antibiotic. There are no TIA or CVA symptoms. Her leg edema is improved and her cellulitis has also improved. She denies any fever, chills, or rigors. There are no anginal symptoms. The patient states that she has chronic orthopnea but no PND. OBJECTIVE: GENERAL: On examination the patient is morbidly obese in no acute distress. She is well-groomed. VITAL SIGNS: She is afebrile with a temperature of 97.4 degrees Fahrenheit, pulse is 70 beats per minute, blood pressure 102/50, respirations are 20 per minute, O2 saturations are 90% on room air. HEENT: Head is atraumatic, normocephalic. Eyes: Pupils are equal, round and regular, reactive to light and accommodation. Extraocular movements are normal. There is no conjunctival pallor. There is no scleral icterus. ENT is negative. NECK: Supple. There is no JVD. There is no lymphadenopathy. There is no goiter. Carotids are equal. There is no bruit. Trachea is central. LUNGS: Clear to auscultation and percussion. There is no chest wall tenderness. HEART: S1 and S2 is heard. S1 is of variable intensity. There is no S3 gallop. There is no S4 gallop. There is a systolic murmur in the left sternal border and the apex. There is no rub. ABDOMEN: Obese, soft, nontender. There is no hepatosplenomegaly. Bowel sounds are well heard. There are no tender areas or masses. EXTREMITIES: Femorals are deep. Femorals are diminished and there are no femoral bruits. Leg pulses are difficult to palpate. There is mild chronic bilateral leg edema with venous stasis dermatitis changes on the right leg and there cellulitis of the left lower extremity which is improving. CENTRAL NERVOUS SYSTEM: The patient is conscious, awake, alert and oriented x3 with no focal deficits. PSYCHIATRIC: The patient's judgment and insight are intact. Her affect is normal. AICD: Note that the patient's AICD is not firing. INTAKE/OUTPUT: The patient's 24 hour intake and output is not accurate. LABORATORY DATA: The patient's sodium is 132.3, potassium 4.6, chloride is 98, CO2 is 30. The patient's BUN is 26, creatinine 1.22, GFR is reduced to 42 mL which is chronic kidney disease stage 3. Her glucose is 79, creatinine is 8.9. The patient's white count is 6700, hemoglobin is 15.4, hematocrit is 45, and the platelet count is 125,000. IMPRESSION: 1. LEFT LOWER EXTREMITY CELLULITIS. The patient is on antibiotics improving. 2. CHRONIC BILATERAL LOWER EXTREMITY SWELLING, SLIGHTLY BETTER. Continue current medication. 3. CHRONIC ATRIAL FIBRILLATION. The patient is on Eliquis and also on a beta marisol, the dose of which has been decreased. She is also on digoxin. We will check a dig level in the a.m. 4. HISTORY OF PERMANENT PACEMAKER PLACEMENT. RECENTLY UPGRADED TO AN AICD, NO FIRING OF THE AICD. 5. CONGESTIVE HEART FAILURE, AT PRESENT COMPENSATED. Continue the patient on digoxin, Lasix, metoprolol. Will need to start the patient on an EVETTE inhibitor, which was due but the patient's blood pressure is low, hence we will start her on a small dose of 2.5 mg p.o. daily. 6. CARDIOMYOPATHY, NO ANGINAL SYMPTOMS. HISTORY OF OLD AL. Continue current treatment including statins and Toprol XL. 7. CARDIOMYOPATHY, MOST LIKELY SEVERELY REDUCED LV EJECTION FRACTION. Continue Lasix and Zaroxolyn. Continue the patient on beta marisol. We will try to start the patient on a small dose of lisinopril. 8. HISTORY OF HYPERTENSION. HER BLOOD PRESSURE IS LOW NORMAL. THE BLOOD PRESSURE IS ABOVE 100 AND THE PATIENT HAS NO SYMPTOMATOLOGY FROM HER LOW NORMAL BLOOD PRESSURE. Hence, will not start midodrine as yet. 9. OBESITY. 10. RENAL FAILURE, CHRONIC KIDNEY DISEASE STAGE 3. STABLE. 11. HISTORY OF CVA WITH NO RECURRENCE AND NO RESIDUAL. 12. HYPERTHYROIDISM. Thiouracil. Heart rate is controlled. We will recheck the patient's thyroid function in a.m. PLAN: Note we will continue the patient on Lasix, Zaroxolyn, beta marisol, and Eliquis and we will check a dig level in the a.m. Continue digoxin for now. We will start the patient on a small EVETTE inhibitor in the a.m. Note 30 minutes spent on this patient with more than 50% of the time spent on direct patient care. Also I have reviewed the patient's medications and adjusted the medications and added medications. Note medical decision making is at present of moderate complexity. We will try to get the patient's echocardiogram from [facility]. DICTATING PHYSICIAN: WILBUR PEREIRA M.D. [id number] PHY#: [id number] ID: [id number] JOB#: [id number] ACCT: [id number] cc: >
[2017-03-18] MEDS: SIMVASTATIN 10 MG TABLET PO SCH (22:15)
[2017-03-19] MEDS: CLINDAMYCIN 600 MG/D5W RTU 600 MG/50 ML RTUPB IV SCH (05:43)
[2017-03-19 06:22] LABS: FREE T3 2.84 pg/mL (2.77-5.27)
[2017-03-19 06:36] LABS: THYROID STIMULATING HORMONE 2.68 uIU/mL (0.47-4.68)
--- NOTE | 2017-03-19 09:31 | PDOC PROGRESS REPORT ---
Subjective Progress Note for:: 03/19/17 Subjective:: Patient is currently doing well Patient's denied any chest pain denied any shortness of the breath Patient's denied any fever Patient still very weak did not walk yesterday Reason For Visit: CELLULITIS/CHF Physical Exam Vital Signs: Temp Pulse Resp BP Pulse Ox 97.4 F 70 19 108/60 96 03/19/17 08:23 03/19/17 08:23 03/19/17 08:23 03/19/17 08:23 03/19/17 08:23 Intake & Output 03/18/17 03/19/17 03/20/17 06:59 06:59 06:59 Intake Total 710 1078 Output Total 150 Balance 710 928 Weight 109 kg General appearance: PRESENT: no acute distress, well-developed, well-nourished Head exam: PRESENT: atraumatic, normocephalic Eye exam: PRESENT: conjunctiva pink, EOMI, PERRLA. ABSENT: scleral icterus Ear exam: PRESENT: normal external ear exam Mouth exam: PRESENT: moist, tongue midline Neck exam: PRESENT: full ROM. ABSENT: carotid bruit, JVD, lymphadenopathy, thyromegaly Respiratory exam: PRESENT: clear to auscultation reg Cardiovascular exam: PRESENT: RRR. ABSENT: diastolic murmur, rubs, systolic murmur Pulses: PRESENT: normal dorsalis pedis pul, +2 pedal pulses bilateral Vascular exam: PRESENT: normal capillary refill GI/Abdominal exam: PRESENT: normal bowel sounds, soft. ABSENT: distended, guarding, mass, organolmegaly, rebound, tenderness Rectal exam: PRESENT: deferred Extremities exam: PRESENT: pedal edema Additional comments: Redness in the left lower extremity is markedly reduced Neurological exam: PRESENT: alert, awake, oriented to person, oriented to place , oriented to time, oriented to situation, CN II-XII grossly intact. ABSENT: motor sensory deficit Psychiatric exam: PRESENT: appropriate affect, normal mood. ABSENT: homicidal ideation, suicidal ideation Skin exam: PRESENT: dry, intact, warm. ABSENT: cyanosis, rash Results Laboratory Results: 03/18/17 07:10 03/18/17 07:10 03/19/17 05:36 TSH 2.68 Free T4 1.76 Free T3 pg/mL 2.84 03/16/17 03/16/17 06:30 06:30 Creatine Kinase 22 L CK-MB (CK-2) 1.05 Troponin I 0.065 NT-Pro-B Natriuret Pep 6680 H Impressions: Chest X-Ray 03/17/17 00:00 IMPRESSION: Left retrocardiac consolidation atelectasis versus pneumonia. Chronic elevated left hemidiaphragm. 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 No CT evidence of acute large territory ischemic change, acute intracranial hemorrhage, mass effect, or midline shift. Air-fluid levels bilateral maxillary sinuses from sinusitis EVIDENCE OF ACUTE STROKE: NO. Assessment & Plan - Diagnosis (1) Cellulitis, leg Qualifiers: Laterality: left Qualified Code(s): L03.116 - Cellulitis of left lower limb Is this a current diagnosis for this admission?: Yes Plan: Switch to the p.o. antibiotic (2) Chronic atrial fibrillation Is this a current diagnosis for this admission?: Yes Plan: Down the Eliquis 2.5 mg to the renal dose (3) Congestive heart failure Qualifiers: Congestive heart failure type: combined Congestive heart failure chronicity : acute on chronic Qualified Code(s): I50.43 - Acute on chronic combined systolic (congestive) and diastolic (congestive) heart failure Is this a current diagnosis for this admission?: Yes Plan: Continues to Lasix and Zaroxolyn with a significant cardiac history we will consult the cardiology (4) Chronic venous insufficiency Plan: Follow with the vascular surgery as outpatient (5) Coronary artery disease Qualifiers: Coronary Disease-Associated Artery/Lesion type: unspecified vessel or lesion type Is this a current diagnosis for this admission?: Yes Plan: We will continues to cardiac enzyme to rule out acute coronary syndromes (6) History of permanent cardiac pacemaker placement Is this a current diagnosis for this admission?: Yes Plan: Currently stable (7) Hypertension Qualifiers: Hypertension type: essential hypertension Qualified Code(s): I10 - Essential (primary) hypertension Is this a current diagnosis for this admission?: Yes Plan: Currently all stable (8) Obesity Is this a current diagnosis for this admission?: Yes (9) Renal failure (ARF), acute on chronic Qualifiers: Acute renal failure type: unspecified Chronic kidney disease stage: stage 2 (mild) Qualified Code(s): N17.9 - Acute kidney failure, unspecified; N18.2 - Chronic kidney disease, stage 2 (mild); N18.2 - Chronic kidney disease, stage 2 (mild) Is this a current diagnosis for this admission?: Yes Plan: Currently all stable - Time Time Spent with patient: 15-24 minutes Medications reviewed and adjusted accordingly: Yes Anticipated discharge: Other Within: Other - Inpatient Certification Based on my medical assessment, after consideration of the patient's comorbidities, presenting symptoms, or acuity I expect that the services needed warrant INPATIENT care.: Yes I certify that my determination is in accordance with my understanding of Medicare's requirements for reasonable and necessary INPATIENT services [42 CFR 412.3e].: Yes Medical Necessity: Need Close Monitoring Due to Risk of Patient Decompensation Post Hospital Care: D/C [employer] Documentation - Plan Summary Plan Summary: Patient is currently doing fair will get the physical therapy evaluationsAnd also social media coordinator if the patient's still weak to be considered to send to the rehab
[2017-03-19] MEDS: APIXABAN 2.5 MG TABLET PO SCH ×2 (10:00→18:05)
[2017-03-19] MEDS: CIPROFLOXACIN HCL 500 MG TABLET PO SCH ×2 (10:00→22:41)
[2017-03-19 10:01] LABS: ANION GAP 11 (5-19); BLOOD UREA NITROGEN 56 mg/dL (7-20); CALCIUM 9.4 mg/dL (8.4-10.2); CARBON DIOXIDE 27 mmol/L (22-30); CHLORIDE 94 mmol/L (98-107); GLUCOSE 83 mg/dL (75-110); POTASSIUM 4.6 mmol/L (3.6-5.0); SODIUM 131.8 mmol/L (137-145)
[2017-03-19] MEDS: POTASSIUM CHLORIDE 10 MEQ TABLET.SA PO SCH (10:01)
[2017-03-19] MEDS: FUROSEMIDE 20 MG TABLET PO SCH ×2 (10:02→18:05)
[2017-03-19] MEDS: DIGOXIN 0.125 MG TABLET PO SCH (10:02)
[2017-03-19] MEDS: METOPROLOL TARTRATE 25 MG TABLET PO SCH ×2 (10:02→22:41)
[2017-03-19] MEDS: LACTOBACILLUS ACIDOPHILUS 250 MG TAB PO SCH ×2 (10:03→18:04)
[2017-03-19] MEDS: DOCUSATE SODIUM 100 MG CAPSULE PO SCH ×2 (10:03→18:04)
[2017-03-19] MEDS: PROPYLTHIOURACIL 50 MG TABLET PO SCH (10:03)
[2017-03-19] MEDS: LISINOPRIL 5 MG TABLET PO SCH (10:05)
--- NOTE | 2017-03-19 12:10 | RADIOLOGY REPORT (SQ) ---
EXAM DESCRIPTION: CHEST PA/LAT COMPLETED DATE/TIME: 03/19/2017 11:43 am REASON FOR STUDY: chf COMPARISON: CT chest 07/02/2015 Chest films 07/09/2015, 03/15/2017, 03/17/2017 EXAM PARAMETERS: NUMBER OF VIEWS: two views TECHNIQUE: Digital Frontal and Lateral radiographic views of the chest acquired. RADIATION DOSE: NA LIMITATIONS: none FINDINGS: LUNGS AND PLEURA: Chronic elevation left hemidiaphragm. There is pulmonary vascular congestion and mild interstitial edema. No alveolar edema or pleural eff usions. No pneumothorax. No dense consolidation worrisome for pneumonia MEDIASTINUM AND HILAR STRUCTURES: No masses or contour abnormalities. HEART AND VASCULAR STRUCTURES: Moderate cardiomegaly, stable BONES: No acute findings. HARDWARE: Left-sided pacemaker/defibrillator OTHER: No other significant finding. IMPRESSION: Pulmonary vascular congestion and mild interstitial edema. Chronic elevation left hemidiaphragm Stable cardiomegaly and pacemaker/defibrillator TECHNICAL DOCUMENTATION: JOB ID: [id number] [employer]- All Rights Reserved
[2017-03-19] MEDS: CLINDAMYCIN HCL 150 MG CAPSULE PO SCH ×3 (13:09→23:50)
[2017-03-19] MEDS ORDERED: METOLAZONE 2.5 MG TABLET PO ONE (13:30)
[2017-03-19] MEDS: SIMVASTATIN 10 MG TABLET PO SCH (22:42)
[2017-03-20] MEDS: ACETAMINOPHEN 325 MG TABLET PO PRN (00:07)
[2017-03-20] MEDS: CLINDAMYCIN HCL 150 MG CAPSULE PO SCH ×2 (06:11→10:55)
[2017-03-20 06:20] LABS: ANION GAP 12 (5-19); BLOOD UREA NITROGEN 51 mg/dL (7-20); CALCIUM 9.3 mg/dL (8.4-10.2); CARBON DIOXIDE 31 mmol/L (22-30); CHLORIDE 91 mmol/L (98-107); CREATININE RESULT 1.06 mg/dL (0.52-1.25); GLUCOSE 81 mg/dL (75-110); POTASSIUM 3.7 mmol/L (3.6-5.0); SODIUM 134.4 mmol/L (137-145)
--- NOTE | 2017-03-20 08:27 | PDOC TRANSFER SUMMARY ---
General - Admit/Disc Date/PCP Admission Date/Primary Care Provider: 03/15/17 23:48 LISETTE PEDERSEN MD Discharge Date: 03/20/17 - Discharge Diagnosis (1) Cellulitis, leg Is this a current diagnosis for this admission?: Yes Summary: Currently all stable continues to Unna boots the left side and the removal on this Saturday and follow with the [facility] next week (2) Chronic atrial fibrillation Is this a current diagnosis for this admission?: Yes Summary: Continues to Eliquis 2.5 mg twice a day with adjust with the renal dose and continues the beta-marisol (3) Congestive heart failure Is this a current diagnosis for this admission?: Yes Summary: Continues to Lasix and Zaroxolyn as order Follow with the cardiology in 1 week Check a CBC and Chem-7 in 1 week (4) Chronic venous insufficiency Is this a current diagnosis for this admission?: Yes Summary: Follow with the [facility] (5) Coronary artery disease Is this a current diagnosis for this admission?: Yes Summary: Currently all stable (6) History of permanent cardiac pacemaker placement Is this a current diagnosis for this admission?: Yes Summary: Cardiology (7) Hypertension Is this a current diagnosis for this admission?: Yes Summary: Currently running in the lower end adjust the medications and check a blood pressures daily (8) Obesity Is this a current diagnosis for this admission?: Yes (9) Renal failure (ARF), acute on chronic Is this a current diagnosis for this admission?: Yes Summary: Creatinine is 1.16 - Additional Information Resuscitation Status: Full Code Discharge Diet: Cardiac Discharge Activity: Activity As Tolerated, Balance Activity w/Rest, Weigh Daily Prescriptions: Acetaminophen [Tylenol 325 mg Tablet] 650 mg PO Q4HP PRN #60 tablet PRN Reason: Ciprofloxacin HCl [Cipro 500 mg Tablet] 500 mg PO Q12 #14 tablet Clindamycin HCl [Cleocin 150 mg Capsule] 300 mg PO Q8 #21 capsule Docusate Sodium [Colace 100 mg Capsule] 100 mg PO BID #60 capsule Furosemide [Lasix 20 mg Tablet] 60 mg PO BID #60 tablet Insulin Lispro [Humalog Insulin (Lispro) 100 unit/mL] 0 - 12 unit SUBCUT ACHSP PRN #1 unit PRN Reason: Lactobacillus Acidophilus/Fos [Acidophilus Probiotic Tablet] 1 each PO BID #14 tablet Lisinopril [Prinivil 5 mg Tablet] 2.5 mg PO DAILY #30 tablet Metoprolol Tartrate [Lopressor 25 mg Tablet] 12.5 mg PO Q12 #60 tablet Potassium Chloride [Klor-Con 10 Meq Tablet.sa] 20 meq PO QAM #30 tablet.sa Home Medications: Digoxin [Lanoxin 0.125 mg Tablet] 125 mcg PO DAILY 05/10/15 Ferrous Sulfate [Feosol 325 mg Tablet] 325 mg PO DAILY 05/10/15 Propylthiouracil [Propylthiouracil 50 mg Tablet] 12.5 mg PO QAM 05/10/15 Simvastatin [Zocor 20 mg Tablet] 20 mg PO QHS 05/10/15 Aspirin [Aspirin 81 mg Chewable Tablet] 81 mg PO DAILY 03/16/17 Ergocalciferol (Vitamin D2) [Drisdol 50,000 unit (1.25MG) Capsule] 50,000 unit PO MO@1000 03/16/17 Metolazone 2.5 mg PO TUWETH@1000 03/16/17 Acetaminophen [Tylenol 325 mg Tablet] 650 mg PO Q4HP PRN #60 tablet 03/20/17 Apixaban [Eliquis 5 mg Tablet] 2.5 mg PO Q12 #0 03/20/17 Ciprofloxacin HCl [Cipro 500 mg Tablet] 500 mg PO Q12 #14 tablet 03/20/17 Clindamycin HCl [Cleocin 150 mg Capsule] 300 mg PO Q8 #21 capsule 03/20/17 Docusate Sodium [Colace 100 mg Capsule] 100 mg PO BID #60 capsule 03/20/17 Furosemide [Lasix 20 mg Tablet] 60 mg PO BID #60 tablet 03/20/17 Insulin Lispro [Humalog Insulin (Lispro) 100 unit/mL] 0 - 12 unit SUBCUT ACHSP PRN #1 unit 03/20/17 Lactobacillus Acidophilus/Fos [Acidophilus Probiotic Tablet] 1 each PO BID #14 tablet 03/20/17 Lisinopril [Prinivil 5 mg Tablet] 2.5 mg PO DAILY #30 tablet 03/20/17 Metoprolol Tartrate [Lopressor 25 mg Tablet] 12.5 mg PO Q12 #60 tablet 03/20/17 Potassium Chloride [Klor-Con 10 Meq Tablet.sa] 20 meq PO QAM #30 tablet.sa 03/20 History of Present Illness Admission Date/PCP: 03/15/17 23:48 LISETTE PEDERSEN MD History of Present Illness: MAXX BEE is a 82 year old female This is a 82-year-old female with a significant history of the congestive heart failure and a history of the chronic venous insufficiency and a history of the atrial fibrillations and pacemaker placement came to the emergency department with a complaint of left lower extremity swelling and redness and increasing the more pain since last 1 week Patient's denied any chest pain but complains of some mild shortness of the breath Patients also see a cardiology at [facility] and recently seen in March was all stable Patients also see a wound care clinic for chronic venous insufficiency In the emergency departments patient's white count is elevated and the definitely patient have a left lower extremity cellulitis with some mild CHF and decided to admit in the hospital The patient on the floor patients feeling better denied any chest pain denied any shortness of the breath Patient's pain is under control Hospital Course Hospital Course: This is a 82-year-old female with a significant medical problem as able came to the emergency department with a complaint of left lower extremity swelling and draining and redness and diagnosed with a cellulitis Also surgical was consulted and put the Unna boots and start the patient on IV antibiotic Response very well and also swelling is also coming down Patient also have a significant chronic venous insufficiency and currently see her Dr. Dario House as outpatient Patient also have a mild heart failure which is chronic patient usually see a [facility] cardiology currently seen by Dr. Pagan and as per discussed with Dr. Pagan patient's discharge home with the Lasix and Zaroxolyn and add new lisinopril and follow with him in 1 week Patient's otherwise remained stable Current does not require any oxygen's She does walk with the physical therapy but still very weak and at this point discussed with the patient and family and agree to send the patient's to the acute rehab Patient is currently hemodynamically stable Patient is currently on Eliquis so make sure the fall precautions and use the walker all the time Physical Exam Vital Signs: Temp Pulse Resp BP Pulse Ox 97.5 F 70 16 102/49 L 97 03/20/17 04:15 03/20/17 04:15 03/20/17 04:15 03/20/17 04:15 03/20/17 04:15 Intake & Output 03/19/17 03/20/17 03/21/17 06:59 06:59 06:59 Intake Total 1078 1340 Output Total 150 550 Balance 928 790 Weight 108 kg General appearance: PRESENT: no acute distress, well-developed, well-nourished Head exam: PRESENT: atraumatic, normocephalic Eye exam: PRESENT: conjunctiva pink, EOMI, PERRLA. ABSENT: scleral icterus Ear exam: PRESENT: normal external ear exam Mouth exam: PRESENT: moist, tongue midline Neck exam: ABSENT: carotid bruit, JVD, lymphadenopathy, thyromegaly Respiratory exam: PRESENT: clear to auscultation reg. ABSENT: rales, rhonchi, wheezes Cardiovascular exam: PRESENT: RRR. ABSENT: diastolic murmur, rubs, systolic murmur Pulses: PRESENT: normal dorsalis pedis pul Vascular exam: PRESENT: normal capillary refill GI/Abdominal exam: PRESENT: normal bowel sounds, soft. ABSENT: distended, guarding, mass, organolmegaly, rebound, tenderness Rectal exam: PRESENT: deferred Extremities exam: PRESENT: full ROM, pedal edema, other. ABSENT: calf tenderness, clubbing Musculoskeletal exam: PRESENT: ambulatory Neurological exam: PRESENT: alert, awake, oriented to person, oriented to place , oriented to time, oriented to situation, CN II-XII grossly intact. ABSENT: motor sensory deficit Psychiatric exam: PRESENT: appropriate affect, normal mood. ABSENT: homicidal ideation, suicidal ideation Skin exam: PRESENT: dry, intact, warm. 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 No CT evidence of acute large territory ischemic change, acute intracranial hemorrhage, mass effect, or midline shift. Air-fluid levels bilateral maxillary sinuses from sinusitis EVIDENCE OF ACUTE STROKE: NO. Chest X-Ray 03/19/17 00:00 IMPRESSION: Pulmonary vascular congestion and mild interstitial edema. Chronic elevation left hemidiaphragm Stable cardiomegaly and pacemaker/defibrillator Transfer Plan - Time Spent with Patient Time spent with patient: Greater than 30 Minutes Plan Time Spent: Greater than 30 Minutes - Patient's discharge to the rehab Check a blood pressures daily Fall precautions Take the Unna boot off on the Saturday Check a CBC and Chem-7 on Saturday on this week Follow with the cardiology Dr. Pagan in 1 week Physical therapy daily Discussed with the patient and the daughter regarding the patient's current conditions discussed with the cardiology okay to discharge
[2017-03-20] MEDS: LACTOBACILLUS ACIDOPHILUS 250 MG TAB PO SCH (10:53)
[2017-03-20] MEDS: APIXABAN 2.5 MG TABLET PO SCH (10:53)
[2017-03-20] MEDS: METOPROLOL TARTRATE 25 MG TABLET PO SCH (10:54)
[2017-03-20] MEDS: POTASSIUM CHLORIDE 10 MEQ TABLET.SA PO SCH (10:54)
[2017-03-20] MEDS: DOCUSATE SODIUM 100 MG CAPSULE PO SCH (10:54)
[2017-03-20] MEDS: CIPROFLOXACIN HCL 500 MG TABLET PO SCH (10:55)
[2017-03-20] MEDS: DIGOXIN 0.125 MG TABLET PO SCH (10:55)
[2017-03-20] MEDS: FUROSEMIDE 20 MG TABLET PO SCH (10:55)
[2017-03-20] MEDS: LISINOPRIL 5 MG TABLET PO SCH (10:55)
[2017-03-20] MEDS: PROPYLTHIOURACIL 50 MG TABLET PO SCH (10:56)
[2017-03-20 11:44] VITALS: BP 104/54
== END 2017-03-20 12:53 | DRG 602 ==
LOC: ER 20:27 → EH 23:48 → 3S 03-16 02:10
PROVIDERS: ADMIT Family Medicine; ATTEND Family Medicine
PROC: 3E0F73Z Introduction of Anti-inflammatory into Respiratory Tract, Via Natural or Artificial Opening (ICD-10-PCS; principal; 2017-03-15)
DX: L03.116 Cellulitis of left lower limb (principal); I50.43 Acute on chronic combined systolic (congestive) and diastolic (congestive) heart failure; Z68.41 Body mass index [BMI] 40.0-44.9, adult; N17.9 Acute kidney failure, unspecified; I13.0 Hypertensive heart and chronic kidney disease with heart failure and stage 1 through stage 4 chronic kidney disease, or unspecified chronic kidney disease; I42.9 Cardiomyopathy, unspecified; I48.2 Chronic atrial fibrillation; I87.2 Venous insufficiency (chronic) (peripheral); I25.10 Atherosclerotic heart disease of native coronary artery without angina pectoris; E78.5 Hyperlipidemia, unspecified; K21.9 Gastro-esophageal reflux disease without esophagitis; E66.01 Morbid (severe) obesity due to excess calories; M19.90 Unspecified osteoarthritis, unspecified site; N18.3 Chronic kidney disease, stage 3 (moderate); E05.90 Thyrotoxicosis, unspecified without thyrotoxic crisis or storm; E11.22 Type 2 diabetes mellitus with diabetic chronic kidney disease; Z90.710 Acquired absence of both cervix and uterus; I25.2 Old myocardial infarction; Z79.899 Other long term (current) drug therapy; Z79.4 Long term (current) use of insulin; Z95.810 Presence of automatic (implantable) cardiac defibrillator; Z88.0 Allergy status to penicillin; Z86.73 Personal history of transient ischemic attack (TIA), and cerebral infarction without residual deficits; Z95.5 Presence of coronary angioplasty implant and graft
CPT/HCPCS: 36415; 70450; 71010; 71020; 80048; 80053; 80162; 81001; 82550; 82553; 82803; 82962; 83605; 83735; 83880; 84439; 84443; 84481; 84484; 85025; 85610; 87040; 87077; 87086; 87186; 93005; 93010; 96374; 99285; G8978-GP; G8979-GP; J1956; J3370; J3490; J7050

== ENCOUNTER 2017-07-21 10:56 | Emergency (ER) | payer MEDICARE, OTHER ==
[2017-07-21] MEDS ORDERED: CLINDAMYCIN 600 MG/D5W RTU 600 MG/50 ML RTUPB IV ONE (11:14)
[2017-07-21] MEDS ORDERED: NORMAL SALINE 1000 ML 500 ML IV ONE (11:14)
[2017-07-21 11:24] LABS: VENOUS BLOOD BASE EXCESS 1.1 mmol/L; VENOUS BLOOD HCO3 27.2 mmol/L (20-32); VENOUS BLOOD PCO2 48.5 mmHg (35-63); VENOUS BLOOD PH 7.37 (7.30-7.42)
--- NOTE | 2017-07-21 11:28 | ER Document Report ---
ED General - General Chief Complaint: Foot Pain Stated Complaint: FOOT PAIN Time Seen by Provider: 07/21/17 11:00 Mode of Arrival: Medic Information source: Patient Notes: Patient is a 82-year-old female with a history of CHF, left lower extremity cellulitis that is chronic, venous insufficiency, presents to the ER today via EMS from longterm for increased pain and swelling to the left lower extremity. Patient states she is unable to walk because of swelling in both legs and the pain in the left lower leg. She states it has worsened over the past week. She denies any fevers or chills at home. She states that it weeps yellow drainage, but that "its has always done that." TRAVEL OUTSIDE OF THE [place] IN LAST 30 DAYS: No - Related Data Allergies/Adverse Reactions: Penicillins Allergy (Intermediate, Verified 05/10/15 12:54) Hives Past Medical History - General Information source: Patient - Social History Smoking Status: Former Smoker Family History: Reviewed & Not Pertinent - Past Medical History Cardiac Medical History: Reports: Hx Atrial Fibrillation, Hx Congestive Heart Failure, Hx Coronary Artery Disease, Hx Heart Attack - 1998 two days after stroke, Hx Hypercholesterolemia, Hx Hypertension - medicated Pulmonary Medical History: Denies: Hx Asthma Neurological Medical History: Reports: Hx Cerebrovascular Accident - minimal amt of weakness on left side 1998. Denies: Hx Seizures Renal/ Medical History: Denies: Hx Peritoneal Dialysis GI Medical History: Reports: Hx Gastroesophageal Reflux Disease, Hx Hepatitis - hep A?? 1952. Denies: Hx Hiatal Hernia, Hx Ulcer Musculoskeltal Medical History: Reports Hx Arthritis Psychiatric Medical History: Denies: Hx Depression Infectious Medical History: Reports: Hx Hepatitis - hep A?? 1952 Past Surgical History: Reports: Hx Cardiac Catheterization, Hx Cardiac Surgery - stent, Hx Hysterectomy, Hx Orthopedic Surgery - right and left hands, Hx Pacemaker, Hx Tonsillectomy. Denies: Hx Mastectomy, Hx Open Heart Surgery - Immunizations Hx Pneumococcal Vaccination: 04/01/10 Review of Systems - Review of Systems Constitutional: No symptoms reported EENT: No symptoms reported Cardiovascular: No symptoms reported Respiratory: No symptoms reported Gastrointestinal: No symptoms reported Genitourinary: No symptoms reported Female Genitourinary: No symptoms reported Musculoskeletal: No symptoms reported Skin: See HPI Hematologic/Lymphatic: No symptoms reported Neurological/Psychological: No symptoms reported Physical Exam - Vital signs Vitals: Temp 97.4 F 07/21/17 11:00 - Notes Notes: PHYSICAL EXAMINATION: GENERAL: Chronically ill-appearing, but alert and oriented, in no acute distress. HEAD: Atraumatic, normocephalic. EYES: Pupils equal round and reactive to light, extraocular movements intact, sclera anicteric, conjunctiva are normal. NECK: Normal range of motion, supple without lymphadenopathy LUNGS: CTAB and equal. No wheezes rales or rhonchi. HEART: Regular rate and rhythm without murmurs ABDOMEN: Soft, no tenderness. No guarding, no rebound BACK: no vertebral tenderness, normal ROM GI/: no CVA tenderness EXTREMITIES: Decreased capillary refill bilateral lower extremities, cold feet, weak pulses bilaterally to distal lower extremities, cannot bear weight, 3+ bilateral pitting edema. No cyanosis. NEUROLOGICAL: Cranial nerves grossly intact. Normal sensory/motor exams. PSYCH: Normal mood, normal affect. SKIN: Warm, Dry, normal turgor, erythema noted to the entirety of the left leg, worse to the lower extremity, including the dorsum of the foot, large ecchymosis to the dorsum of the foot, entire left lower extremity tender to palpation, Course - Re-evaluation Re-evalutation: 07/21/17 11:28 Dr. Recinos at bedside, pt bp 78/42, fluids running, labwork pending for sepsis and cardiac. pt in nad, pt started on clindamycin for cellulitis likely causing sepsis. 07/21/17 13:40 Patient is a leukocytosis of 13.7, lactic acid of 4.9, creatinine of 1.83 when normally here she has been normal kidney function with a normal creatinine. Urinalysis negative for infection. Patient accepted at [facility] by Dr. Irineo Connolly, bilingual recruiter, Dr. Ray and I are going in now to place a central line. Patient's pressure at this time is 104/43 with Levophed running. 07/21/17 14:47 Central line placed successfully. Pt started on vancomycin. Dr. Hobbs wants vanc along with the clindamycin. No "A category" antibiotic on the sepsis protocol is great for cellulitis causing sepsis. 07/21/17 15:58 pt ready for transfer, stable, transport here to take her. 07/21/17 15:59 - Vital Signs Vital signs: Temp Pulse Resp BP Pulse Ox 97.4 F 14 90/57 L 91 L 07/21/17 11:00 07/21/17 14:10 07/21/17 14:00 07/21/17 14:10 - Laboratory Result Diagrams: 07/21/17 11:05 07/21/17 11:05 Laboratory results interpreted by me: 07/21/17 07/21/17 07/21/17 11:05 11:05 11:05 WBC 13.7 H RDW 15.6 H Plt Count 129 L Seg Neuts % (Manual) 92 H Lymphocytes % (Manual) 0 L Abs Neuts (Manual) 13.0 H Abs Lymphs (Manual) 0.0 L Sodium 131.9 L Chloride 88 L BUN 71 H Creatinine 1.89 H Est GFR ( Amer) 31 L Est GFR (Non-Af Amer) 25 L Glucose 70 L Lactic Acid 4.9 H Total Bilirubin 4.9 H Direct Bilirubin 3.4 H NT-Pro-B Natriuret Pep Albumin 3.1 L Urine Protein Urine Blood Urine Urobilinogen Ur Leukocyte Esterase 07/21/17 07/21/17 07/21/17 11:05 11:56 14:54 WBC RDW Plt Count Seg Neuts % (Manual) Lymphocytes % (Manual) Abs Neuts (Manual) Abs Lymphs (Manual) Sodium Chloride BUN Creatinine Est GFR ( Amer) Est GFR (Non-Af Amer) Glucose Lactic Acid 3.7 H Total Bilirubin Direct Bilirubin NT-Pro-B Natriuret Pep 02963 H Albumin Urine Protein 30 H Urine Blood MODERATE H Urine Urobilinogen 2.0 H Ur Leukocyte Esterase TRACE H Procedures - Central Line Right Femoral Time completed: 14:38 Consent obtained: Yes - 2: Shortness of [id number] Central line pre-insertion: Sterile PPE donned, Chloraprep applied, Sterile drapes applied Central line lumen type: Triple Anesthetic type: 1% Lidocaine mL's of anesthesia: 5 Ultrasound guided: Yes Line secured with sutures: Yes Central line post-insertion: Blood return from lumens, Biopatch applied, Sterile dressing applied, Position confirmed w/ CXR Number of attempts: 1 Complications: No Notes: 07/21/17 14:50 Dr. Ray at bedside assisting me. Critical Care Note - Critical Care Note Total time excluding time spent on procedures (mins): 45 - 45___ minutes spent in critical care time with patient, consulted with attending, speaking with family, placing orders and evaluating tests and labs. Discharge - Discharge Clinical Impression: Septic shock, Cellulitis of left lower extremity Condition: Fair Disposition: [facility] Referrals: LISETTE PEDERSEN MD [Primary Care Provider] - Follow up as needed
[2017-07-21 11:44] LABS: ALANINE AMINOTRANSFERASE 23 U/L (9-52); ALBUMIN 3.1 g/dL (3.5-5.0); ALKALINE PHOSPHATASE 100 U/L (38-126); ANION GAP 18 (5-19); ASPARTATE AMINO TRANSFERASE 36 U/L (14-36); BILIRUBIN,DIRECT 3.4 mg/dL (0.0-0.4); BILIRUBIN,TOTAL 4.9 mg/dL (0.2-1.3); BLOOD UREA NITROGEN 71 mg/dL (7-20); CARBON DIOXIDE 26 mmol/L (22-30); CHLORIDE 88 mmol/L (98-107); CREATINE KINASE 46 U/L (30-135); GLUCOSE 70 mg/dL (75-110); POTASSIUM 4.5 mmol/L (3.6-5.0); SODIUM 131.9 mmol/L (137-145); TOTAL PROTEIN 6.9 g/dL (6.3-8.2)
[2017-07-21 11:46] LABS: HEMATOCRIT 45.9 % (36.0-47.0); HEMOGLOBIN 15.4 g/dL (12.0-15.5); MEAN CORPUSCULAR HEMOGLOBIN 31.1 pg (27.0-33.4); MEAN CORPUSCULAR HGB CONC 33.6 g/dL (32.0-36.0); MEAN CORPUSCULAR VOLUME 93 fl (80-97); PLATELET COUNT 129 10^3/uL (150-450); RED BLOOD COUNT 4.95 10^6/uL (3.72-5.28); RED CELL DISTRIBUTION WIDTH 15.6 % (11.5-14.0); WHITE BLOOD COUNT 13.7 10^3/uL (4.0-10.5)
[2017-07-21] MEDS ORDERED: NORMAL SALINE 1000 ML 1,000 ML IV ONE (11:47)
[2017-07-21] MEDS ORDERED: FUROSEMIDE INJ/PF 20 MG/2 ML SDV IV ONE (11:47)
--- NOTE | 2017-07-21 11:49 | RADIOLOGY REPORT (SQ) ---
EXAM DESCRIPTION: CHEST SINGLE VIEW COMPLETED DATE/TIME: 07/21/2017 11:41 am REASON FOR STUDY: hypotension COMPARISON: 03/19/2017 EXAM PARAMETERS: NUMBER OF VIEWS: One view. TECHNIQUE: Single frontal radiographic view of the chest acquired. RADIATION DOSE: NA LIMITATIONS: None. FINDINGS: LUNGS AND PLEURA: No new opacities, masses or pneumothorax. No pleural effusion. Stable e levation of the left hemidiaphragm in the setting of hiatal hernia MEDIASTINUM AND HILAR STRUCTURES: No masses. Contour normal. HEART AND VASCULAR STRUCTURES: Heart stable in size. Normal vasculature. BONES: No acute findings. HARDWARE: Stable. OTHER: No other significant finding. IMPRESSION: NO ACUTE RADIOGRAPHIC FINDING IN THE CHEST. CHRONIC CHANGES ABOVE TECHNICAL DOCUMENTATION: JOB ID: [id number] [employer]- All Rights Reserved Reading location - IP/workstation name: [email or web address]
[2017-07-21 11:55] LABS: CREATINE KINASE MB 2.8 ng/mL (<4.55)
[2017-07-21 12:02] LABS: TROPONIN I 0.041 ng/mL
[2017-07-21] MEDS ORDERED: DEXTROSE 5%-WATER 250 ML with NOREPINEPHRINE BITARTRATE 4 MG IV PRN ×2 (12:12)
[2017-07-21 12:14] LABS: ABSOLUTE MONOCYTES # (MANUAL) 0.7 10^3/uL (0.1-1.4); BAND NEUTROPHILS % (MANUAL) 3 % (3-5); BASOPHILS % (MANUAL) 0 % (0-2); EOSINOPHILS % (MANUAL) 0 % (0-6); LYMPHOCYTES % (MANUAL) 0 % (13-45); MONOCYTES % (MANUAL) 5 % (3-13); SEGMENTED NEUTROPHILS % (MAN) 92 % (42-78); TOTAL CELLS COUNTED 100
[2017-07-21 12:17] LABS: ANISOCYTOSIS SLIGHT; OVALOCYTES SLIGHT; PLATELET CLUMPS PRESENT; PLATELET COMMENT ADEQUATE; PLATELET LARGE PRESENT; POIKILOCYTOSIS SLIGHT; TOXIC GRANULATION 1+; TOXIC VACUOLATION PRESENT
[2017-07-21] MEDS ORDERED: NOREPINEPHRINE BITARTRATE INJ/PF 4 MG/4 ML SDV IV ONE (12:22)
[2017-07-21 12:27] LABS: AMORPHOUS SEDIMENT,URINE TRACE /HPF; APPEARANCE,URINE CLOUDY; BILIRUBIN,URINE NEGATIVE (NEGATIVE); COLOR,URINE AMBER; GLUCOSE, URINE NEGATIVE (NEGATIVE); KETONES,URINE NEGATIVE (NEGATIVE); LEUKOCYTE ESTERASE,URINE TRACE (NEGATIVE); NITRITE,URINE NEGATIVE (NEGATIVE); PROTEIN,URINE 30 mg/dL (NEGATIVE); URINE SPECIFIC GRAVITY 1.015
[2017-07-21] MEDS ORDERED: VANCOMYCIN HCL INJ 1000 MG VIAL IV ONE (13:34)
[2017-07-21] MEDS ORDERED: FENTANYL CITRATE INJ/PF 100 MCG/2 ML AMPUL ONE (13:58)
--- NOTE | 2017-07-21 14:04 | CONSULTATION REPORT E ---
Consultation Report NAME: MAXX BEE : 1935 AGE: 82Y DATE: 07/21/2017 TO: JUS JAMES M.D. FROM: Umm REESE, Requesting Physician REFERRING PHYSICIAN: Dr. Tirado. REASON FOR CONSULTATION: Left lower extremity infection. HISTORY OF PRESENT ILLNESS: Patient is an 82-year-old white female brought by ground rescue to [facility] Emergency Department complaining of left foot and leg pain, swelling, discoloration, significantly above her baseline complaints of left lower extremity edema, weeping, etc. She has a long history of chronic venous hypertension to her left lower extremity, at least 8 years in the management on an outpatient and inpatient basis over those years. However, the patient's left foot became discolored just this morning with black discoloration to the dorsum of the foot. The patient is seen in the Emergency Department where her blood pressure is hovering around 80. The patient is being evaluated by Dr. Tirado, who feels patient needs to be transferred to [facility] for a higher level of care. PAST MEDICAL HISTORY: Can be found in the history and physical document including obesity, COPD, atrial fibrillation on chronic anticoagulation therapy, AICD pacer placement, venous hypertension, history of stroke, hypercholesterolemia. PAST SURGICAL HISTORY: Significant for bilateral knee replacements, pacer placement, coronary stent placement, and tonsillectomy. MEDICATIONS: Listed in her transfer summary. ALLERGIES: PENICILLIN. REVIEW OF SYSTEMS: Not obtained. FAMILY HISTORY: Noncontributory. PHYSICAL EXAMINATION: Patient examined in the Emergency Department. GENERAL: She is in mild distress. She is awake, alert, and oriented x4. VITAL SIGNS: Temperature 94.4, heart rate not documented, weight is 103 kg. PSYCHIATRIC: Patient is awake and oriented x4. PULMONARY: Diminished, wheezing breath sounds bilaterally. LOWER EXTREMITIES: Examined. Patient does have palpable femoral pulses, but unable to appreciate pulses distally due to marked edema. The right lower extremity has chronic edema due to venous hypertension. No open ulcers. The right foot is warm, but the toes are cool. Left lower extremity is 1-1/2 times the diameter of the right with splotchy, erythematous skin changes to the thigh proximally and medially. The chronic lymphedema from the tibial tuberosity of the ankle is old without any new changes. However, the foot is clearly edematous, very tender, with the underlying skin over the dorsum of the foot deeply discolored and black in areas. The toes are tender. Range of motion is limited due to pain. LABORATORY PROFILE: CBC pending. Bicarb of 26. Lactate level of 4.9. Total bilirubin of 4.9 as well. Albumin 3.1. IMPRESSION: Septic left lower extremity, etiology likely multifactorial including chronic venous hypertension, cellulitis, congestive heart failure, as well as morbid obesity. DISCUSSION AND RECOMMENDATIONS: The patient has severe sepsis to the left lower extremity. We await the white count but clinically the patient's history and physical exam are consistent with a progressive soft tissue infection. The patient is going to need intravenous antibiotics and likely surgical debridement, possibly even amputation. Given the limited human and support resources available at [facility], I have suggested the patient be transferred to [facility] where a higher level of care can be provided. DICTATING PHYSICIAN: JUS JAMES M.D. [id number] PHY#: [id number] ID: [id number] JOB#: [id number] ACCT: [id number] cc:JUS JAMES M.D. >
[2017-07-21 14:07] VITALS: BP 90/57
[2017-07-21] MEDS ORDERED: FENTANYL CITRATE INJ/PF 100 MCG/2 ML AMPUL IV ONE ×2 (15:25→15:40)
--- NOTE | 2017-07-21 15:25 | RADIOLOGY REPORT (SQ) ---
EXAM DESCRIPTION: KUB/ABDOMEN (SINGLE VIEW) COMPLETED DATE/TIME: 07/21/2017 3:14 pm REASON FOR STUDY: s/p central line femoral placement COMPARISON: None. FINDINGS: Portably obtained supine AP images of the abdomen and pelvis. Right femoral line in place, tip to the region of the common femoral vein. Collado catheter in place. Nonobstructive bowel gas pattern. Presumed phleboliths in the pelvis. IMPRESSION: Right femoral line to the region of the right common femoral vein. TECHNICAL DOCUMENTATION: JOB ID: [id number] Reading location - IP/workstation name: [email or web address]
--- NOTE | 2017-07-21 17:17 | EKG REPORT ---
SEVERITY:- ABNORMAL ECG - VENTRICULAR-PACED RHYTHM : Confirmed by: Anastasiya Mac 21-Jul-2017 17:16:40
== END 2017-07-21 15:45 | disposition short-term general hospital (02) ==
LOC: ER 10:56
DX: A41.9 Sepsis, unspecified organism (principal); L03.116 Cellulitis of left lower limb; R65.21 Severe sepsis with septic shock; I87.2 Venous insufficiency (chronic) (peripheral); I25.10 Atherosclerotic heart disease of native coronary artery without angina pectoris; R60.0 Localized edema; I25.2 Old myocardial infarction; I10 Essential (primary) hypertension; Z98.61 Coronary angioplasty status; Z95.0 Presence of cardiac pacemaker; Z88.0 Allergy status to penicillin
CPT/HCPCS: 93005; 99291; 96361; 96375; 96365; 96366; 96368; 36415; 87040; 87086; 82553; 82550; 85025; 87077; 87088; 80053; 81001; 84484; 87186; 82803; 83605; 83880; 71045; 74018; 93010; 36556; C1751; J3010; J1940; J3490; J7060; J7030; J3370